=== PATIENT | male | born 2005 | race Caucasian/White ===

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

== ENCOUNTER 2025-02-27 12:13 | Outpatient (OUT) | payer MEDICAID, SELFPAY ==
--- OUTSIDE RECORDS SUMMARY | 2025-02-24 13:40 | XMS_ITS | Encounter Summary ---
Author Organization [facility] Address [address] [place] [address] Care Team Providers Care Senior Manufacturing Supervisor Name Role Phone Deyanira Beaulieu MD Primary Care Provider Reason for Visit * ReasonCommentsAcne Encounter Details DateTypeDepartmentCare Team (Latest Contact Info)Zuganegrpfz18/20/2025 1:40 PM EDTOffice Visit [facility] [address] [place] [address] Paulina Eisenberg APRN-CNP [address] [facility] [address] [place] [address] Acne vulgaris Social History Tobacco UseTypesPacks/DayYears UsedDateSmoking Tobacco: NeverAlcohol UseStandard Drinks/WeekCommentsNever0 (1 standard drink = 0.6 oz pure alcohol)caffeine: none Sex and Gender InformationValueDate RecordedSex Assigned at BirthNot on file Legal SiiKelu3407/20/2022 6:33 PM EDTGender IdentityNot on fileSexual Orientation Not on filedocumented as of this encounter Progress Notes * LIZA Burks - 02/24/2025 1:40 PM EDT Acne follow up: Location: face, back Duration: years Severity: mild Nature of acne: pimples, blackheads, cysts Modifying factors: none Associated Factors: oily skin Treatments used in the past: Doxycycline Current treatment: BPO 5% wash Status: stable, concerned with PIH Established patient All pertinent medical history, medications, and allergies were reviewed. General Exam: alert, oriented to person, place, and time, normal affect, well appearing Accompanied by friend A focused exam completed based on patient reported problems, see below: Skin Exam 1. ACNE VULGARIS Back, Head - Anterior (Face) Face clear today. PIH and scarring noted on the back. Continue BPO wash every day. Follow up in 1 year, sooner if flaring despite treatment. Existing Treatments - benzoyl peroxide (Benzoyl Peroxide Wash) 5 % external wash - APPLY TO THE AFFECTED AREA DAILY then rinse Next Visit: 1 year acne follow up documented in this encounter Plan of Treatment DateTypeDepartmentCare Team (Latest Contact Info)Krrvgdiukpv40/18/2025 2:40 PM ESTOffice Visit [facility] [address] [place] [address] Paulina Eisenberg APRN-CNP [address] [place] [address] 02/26/2026 1:00 PM EDTOffice Visit [facility] [address] [place] [address] Paulina Eisenberg APRN-CNP [address] [place] [address] documented as of this encounter Visit Diagnoses Diagnosis Acne vulgaris Other acne documented in this encounter Care Teams Team MemberRelationshipSpecialtyStart DateEnd Date Deyanira Beaulieu MD [address] [place] [address] PCP - GeneralFamily Qqajzhhc44/31/23documented as of this encounter
--- OUTSIDE RECORDS SUMMARY | 2025-02-27 12:16 | XMS_ITS | Encounter Summary ---
Author Organization [facility] Address [address] [place] [address] Care Team Providers Care Engagement Executive Name Role Phone Deyanira Beaulieu MD Primary Care Provider [phone] Encounter Details DateTypeDepartmentCare Team (Latest Contact Info)Zlhqudswckt87/20/2025Travel Social History Tobacco UseTypesPacks/DayYears UsedDateSmoking Tobacco: NeverAlcohol UseStandard Drinks/WeekCommentsNever0 (1 standard drink = 0.6 oz pure alcohol)caffeine: none Sex and Gender InformationValueDate RecordedSex Assigned at BirthNot on file Legal MkkPdah1907/20/2022 6:33 PM EDTGender IdentityNot on fileSexual Orientation Not on filedocumented as of this encounter Plan of Treatment DateTypeDepartmentCare Team (Latest Contact Info)Dnrkxcyinnq88/18/2025 2:40 PM ESTOffice Visit [facility] [address] [place] [phone] Paulina Eisenberg, WHEELCHAIR VAN DRIVER-SHEAR HELPER [address] [place] [address] 02/26/2026 1:00 PM EDTOffice Visit [facility] [address] [place] [address] Paulina Eisenberg, WHEELCHAIR VAN DRIVER-SHEAR HELPER [address] [place] [address] documented as of this encounter Visit Diagnoses Not on filedocumented in this encounter Care Teams Team MemberRelationshipSpecialtyStart DateEnd Date Deyanira Beaulieu MD [address] [place] [address] PCP - GeneralFamily Vkyjmscb09/31/23documented as of this encounter
--- OUTSIDE RECORDS SUMMARY | 2025-02-27 12:16 | XMS_ITS | Encounter Summary ---
Author Organization [facility] Address [address] [place] [address] Care Team Providers Care Religious Education Teacher Name Role Phone Deyanira Beaulieu MD Primary Care Provider [phone] Reason for Visit * ReasonOnset DateCommentsPrior Staxbdxcbdlcr42/09/2025 Encounter Details DateTypeDepartmentCare Team (Latest Contact Info)Rfsxrtkjity98/09/2025Telephone [facility] [address] [place] [phone] Rebel Ramirez LPN [address] [place] [address] Prior Authorization Social History Tobacco UseTypesPacks/DayYears UsedDateSmoking Tobacco: NeverAlcohol UseStandard Drinks/WeekCommentsNever0 (1 standard drink = 0.6 oz pure alcohol)caffeine: none Sex and Gender InformationValueDate RecordedSex Assigned at BirthNot on file Legal NwzKzbp6407/20/2022 6:33 PM EDTGender IdentityNot on fileSexual Orientation Not on filedocumented as of this encounter Miscellaneous Notes * Addendum Note - Rebel Ramirez LPN - 02/18/2025 1:25 PM EDTAddended by: REBEL RAIMREZ on: 02/18/2025 01:25 PM Modules accepted: Orders * Telephone Encounter - Rebel Ramirez LPN - 02/18/2025 1:25 PM EDT Resent as 35 mL. * Telephone Encounter - Rebel Ramirez LPN - 02/18/2025 8:39 AM EDT Drysol sent. Mom notified. Follow up for effectiveness in place for 03/25/2025. Requested mom call back and provide approval to cancel 02/24/2025 appt, as acne follow up can be combined with hyperhidrosis follow up on 03/25/2025. Forwarding back to provider since rx has been sent. * Telephone Encounter - LIZA Burks - 02/18/2025 8:22 AM EDT Okay to send in Drysol * Telephone Encounter - Rebel Ramirez LPN - 02/17/2025 10:34 AM EDT Sofdra gel denied. Coverage is provided when the member meets ALL the following requirements: Coverage is provided when the member has a history of at least 30 days of therapy with 3 preferred (medication covered by the Plan) medications in the same drug class (work in the same manner) that can be used to treat the members condition, or 2 preferred medications if there is no alternative in the same drug class, which include but are not limited to: Drysol OR Must provide documentation of medical necessity beyond convenience for why the patient cannot be changed to a preferred (medicationcovered by the plan) medication: for example, allergies (reaction to medication, such as itching ortrouble breathing), drug-drug interactions, contraindications, or intolerance (cannot tolerate the effects of a medication), OR There are no other preferred medications (medication covered by the Plan) available to treat member condition or requested dosage forms; and provider has provided appropriate supporting clinical evidence for members need of the non-preferred drug. Pt must try Drysol first x 30 days. Phone call to mom (on HIPAA) who approves Drysol to be sent to the pharmacy. Let mom know once Paulina approves sending this (tomorrow) Drysol will be sent and I will notify her. Added pt to scheduled 03/25/2025 for follow up on Drysol. Will need documentation pt tried and failed x 30 days. Mom aware to citrus picker Drysol as soon as possible from pharmacy. * Telephone Encounter - Rebel Ramirez LPN - 02/14/2025 9:11 AM EDT PA submitted for Sofdra gel at this time in CMM. Tried and failed OTC antiperspirants. * Telephone Encounter - LIZA Burks - 02/13/2025 1:58 PM EDT Okay to send Softra in * Telephone Encounter - Rebel Ramirez LPN - 02/13/2025 1:45 PM EDT Paulina, we recently got this pt's brother of Sofdra gel through [facility] and everything went smoothly after sending rx there today. Mom called and states New Mosqueda deals with odor as well and would like to know if New could have a prescription as well for Sofdra. Last visit was 09/2024. I can get a PA going if you would like to prescribe. documented in this encounter Plan of Treatment DateTypeDepartmentCare Team (Latest Contact Info)Xmtdngduiwr68/18/2025 2:40 PM ESTOffice Visit [facility] [place] [facility] [address] [place] [address] Paulina Eisenberg APRN-CNP [address] [place] [address] 02/26/2026 1:00 PM EDTOffice Visit [facility] [place] [facility] [address] [place] [phone] Paulina Eisenberg APRN-ERIKA [address] [place] [address] documented as of this encounter Visit Diagnoses Diagnosis Primary focal hyperhidrosis Primary focal hyperhidrosis, axilla documented in this encounter Care Teams Team MemberRelationshipSpecialtyStart DateEnd Date Deyanira Beaulieu MD [address] [place] [address] PCP - GeneralFamily Ultpqtgv79/31/23documented as of this encounter
--- OUTSIDE RECORDS SUMMARY | 2025-02-27 12:16 | XMS_ITS | Clinical Summary ---
Author Organization [facility] Address [address] [place] [address] Phone Care Team Providers Care Waiter/Waitress First Class Name Role Phone Doin Paul MD Primary Care Provider Unavailable Allergies Active AllergyReactionsCriticalityNoted DateCommentsCephalexinUnknown,Hives, Other06/09/2017 Medications MedicationSigDispense QuantityRefillsLast FilledStart DateEnd DateStatus albuterol (Ventolin HFA) 90 mcg/actuation inhaler Inhale 2 puffs every 6 hours if needed.12/08/2017Active cetirizine (ZyrTEC) 10 mg tablet Take 1 tablet (10 mg) by mouth.11/14/2019Active cholecalciferol (Vitamin D-3) 50 MCG (2000 UT) tablet Take 1 tablet (50 mcg) by mouth.10/23/2020ctive ergocalciferol (Vitamin D-2) 1.25 MG (69053 UT) capsule Take 1 capsule (1,250 mcg) by mouth 1 (one) time per week.06/13/2019Active lamoTRIgine (LaMICtal) 200 mg tablet Take 1 tablet (200 mg) by mouth.Active lamoTRIgine (LaMICtal) 25 mg tablet Take 1 tablet (25 mg) by mouth.05/05/2020Active multivitamin (Daily-Rosalia, with folic acid,) tablet Take 1 tablet by mouth.07/05/2019Active traZODone (Desyrel) 50 mg tablet Take 1 tablet (50 mg) by mouth.Active fexofenadine HCl (ASHLEY ORAL) Take 1 tablet by mouth.Active montelukast (Singulair) 10 mg tablet Take 1 tablet (10 mg) by mouth once daily.06/08/2022ctive cholecalciferol (Vitamin D-3) 50 mcg (2,000 unit) capsule Take 1 capsule (2,000 Units) by mouth once daily.06/08/2022ctive fexofenadine (Ashley) 180 mg tablet Take 1 tablet (180 mg) by mouth once daily.02/01/2023ctive paliperidone (Invega) 3 mg 24 hr tablet Take 1 tablet (3 mg) by mouth once daily in the morning. Do not crush, chew, or split.08/21/2023ctive benzoyl peroxide 5 % external wash APPLY TO THE AFFECTED AREA(S) DAILY then rinse02/28/2024ctive docusate sodium (Colace) 100 mg capsule Indications:Constipation, unspecified constipation typeTake 1 capsule (100 mg) by mouth once daily. 30 capsule ctive famotidine (Pepcid) 40 mg tablet Indications:Gastroesophageal reflux disease without esophagitisTake 1 tablet (40 mg) by mouth once daily. 30 tablet ctive Active Problems ProblemNoted DateDiagnosed UiqzZapovgiorigj69/16/2023sthma, mild intermittent 01/17/2023astroesophageal qwnrih0501/17/2023ttention deficit hyperactivity disorder, combined type02/02/2018Oppositional defiant eoxytizh12/28/2018 Immunizations ImmunizationAdministration DatesNext DueDTaP HepB IPV combined vaccine, pedatric (PEDIARIX)07/04/2006,04/26/2006,02/10/2006DTaP IPV combined vaccine (KINRIX, QUADRACEL)09/22/2010DTaP vaccine, pediatric (INFANRIX)03/28/2007Flu vaccine (IIV4), preservative free *Check age/dose*02/28/2022,02/22/2021,02/24/2020, 02/24/2019,02/07/2018Flu vaccine, trivalent, preservative free, age 6 months and greater (Fluarix/Fluzone/Flulaval)12/16/2016HPV 9-valent vaccine (GARDASIL 9) 07/25/2018,01/18/2018Hepatitis A vaccine, pediatric/adolescent (HAVRIX, VAQTA) 04/27/2011,09/22/2010Hepatitis B vaccine, 19 yrs and under (RECOMBIVAX, ENGERIX) 2005HiB PRP-T conjugate vaccine (HIBERIX, ACTHIB)12/20/2006,07/04/2006, 04/26/2006,02/10/2006Influenza Whole02/08/2013,03/05/2012,02/28/2011,03/26/2009, 02/23/2009Influenza, live, ehgjcrpkoo20/20/2014MMR and varicella combined vaccine, subcutaneous (PROQUAD)09/22/2010,12/20/2006Meningococcal ACWY vaccine (MENVEO)02/28/2022Meningococcal MCV4, Obwlvftauqq85/13/2018Novel gceswxhkm-W5X1-67, preservative-free08/11/2009Pneumococcal Conjugate PCV 7 03/28/2007,08/23/2006,07/04/2006,02/10/2006Td (adult), bxssrbxovja43/30/2018 Family History Medical HistoryRelationNameCommentsAllergiesBrotherAsthmaBrotherEczemaBrother MigrainesBrotherMilk intoleranceBrotherOtherBrotherUlcersBrotherCholelithiasis FatherNephrolithiasisFatherOtherFatherUlcersFatherCholelithiasisMaternal GrandfatherNephrolithiasisMaternal GrandfatherOtherMaternal Grandfather CholelithiasisMaternal GrandmotherNephrolithiasisMaternal GrandmotherOther Maternal GrandmotherAsthmaMotherCholelithiasisMotherColonic DiverticulitisMother Gastroesophageal RefluxMotherMigrainesMotherNephrolithiasisMotherUlcersMother CholelithiasisPaternal GrandfatherNephrolithiasisPaternal GrandfatherOther Paternal GrandfatherCholelithiasisPaternal GrandmotherNephrolithiasisPaternal GrandmotherOtherPaternal GrandmotherAllergiesSisterAsthmaSisterMigrainesSister OtherSisterRelationNameStatusCommentsBrotherFatherMaternal GrandfatherMaternal GrandmotherMotherPaternal GrandfatherPaternal GrandmotherSister Social History Tobacco UseTypesPacks/DayYears UsedDateSmoking Tobacco: Unknown Tobacco Cessation:Counseling Given: Not Answered Sex and Gender InformationValueDate RecordedSex Assigned at BirthNot on file Legal TsjQnov02/26/2022 6:37 PM ESTGender IdentityNot on fileSexual Orientation Not on file Last Filed Vital Signs Vital SignReadingTime TakenCommentsBlood Abalummm490/71008/08/2022 2:41 PM EDT Acmpy1030/03/2023 2:41 PM XNGLmyzkirjsba06.7 ??C (98 ??F)08/08/2022 2:41 PM EDT Respiratory Hcqh641108/08/2022 2:41 PM EDTOxygen Ccdhllpocb26%08/08/2022 2:41 PM EDTInhaled Oxygen Concentration--Axepaf55.1 kg (218 lb 7.6 oz)03/01/2024 10:15 AM WMDZvlpef006 cm (5' 4.17 )03/01/2024 10:15 AM EDTBody Mass Index37.3 03/01/2024 10:15 AM EDTBody Mass Index Ykyioljdrr87.85%03/01/2024 10:15 AM EDT Growth Chart: [facility] (Boys, 2-20 Years) Plan of Treatment Health MaintenanceDue DateLast DoneCommentsHIV Xsupwercg41/04/2006Lipid Panel 2005Hearing Screening (#1)2009DTaP/Tdap/Td Vaccines (6 - Tdap) , 09/22/2010, 09/22/2010, Additional history exists Meningococcal B Vaccine (1 of 2 - Standard)2021Hepatitis C Screening 12/10/2023Yearly Adult Cfpaplzx21, 04/13/2022, 12/28/2020, Additional history existsInfluenza Vaccine (#1)/, 02/28/2022, 02/22/2021, Additional history existsPneumococcal Vaccine: Pediatrics and At- Risk Adult Patients (1 of 2 - PCV), 08/23/2006, 07/04/2006, Additional history existsCOVID-19 Vaccine (3 - 2024- season)2025 02/22/2021, 01/15/2021Zoster Vaccines (1 of 2)6009/22/2010, 09/22/2010, 12/20/2006, Additional history existsHepatitis B KbkjiixqCgqlcmcos70/27/2007, 07/04/2006, 04/26/2006, Additional history existsHIB VaccinesCompleted 12/20/2006, 07/04/2006, 04/26/2006, Additional history existsIPV Vaccines Lkvzeotqo51/18/2011, 09/22/2010, 07/04/2006, Additional history existsMMR EdhqntebDenkpmjjp08/18/2011, 09/22/2010, 12/20/2006, Additional history exists Hepatitis A TknqurewZhuusxjyp22/21/2011, 09/22/2010HPV VaccinesCompleted 07/25/2018, 01/18/2018Irritable Bowel SvwiashqAlziikmzfler22/28/2020, 10/03/2019, 10/03/2019Meningococcal NggniciDifckuouf96/24/2022, 01/18/2018 Rotavirus VaccinesAged OutNo longer eligible based on patient's age to complete this topic Procedures Procedure NamePriorityDate/TimeAssociated DiagnosisCommentsCOLONOSCOPYRoutine 10/03/2019 7:03 AM EDT from Last 3 Months or Most Recently Relevant to Health Maintenance Results * Colonoscopy (10/03/2019 7:03 AM EDT)Anatomical RegionLateralityModality EndoscopySpecimen (Source)Anatomical Location / LateralityCollection Method / VolumeCollection TimeReceived Time10/03/2019 7:03 AM EDT Narrative 05/17/2022 12:57 PM EST Patient Name: New Mosqueda Procedure Date: 10/03/2019 7:03 AM Date of : 2005 Site: OR Ethnicity: Not or Race: Other Attending MD: Marylou Thomas MD, [id number] Procedure: ? Pediatric Colonoscopy Indications: ? Abdominal pain in the right lower quadrant Providers: ? Marylou B. Splawski, MD (Doctor) Pediatric ? Gastroenterology Referring MD: ? Medicines: ? General Anesthesia Complications: ? No immediate complications. Estimated blood loss: ? Minimal. Procedure: ? Pre-Anesthesia Assessment: ? - Lynn Protocol: ? - Pre-procedure Verification: Prior to the procedure, ? the patient's identity was verified by full name, date ? of and medical record number. The patient's ? identity was verified on all pertinent medical ? records, including History and Physical. Also prior to ? the procedure, a History and Physical was performed, ? and patient medications, allergies and sensitivities ? were reviewed. The patient's tolerance of previous ? anesthesia was reviewed. The risks and benefits of the ? procedure and the sedation options and risks were ? discussed with the patient. All questions were ? answered and informed consent was obtained. ? - Time-Out: Prior to the start of the procedure, the ? patient's identification, proposed procedure, accurate ? signed consent, correctly labeled images and records, ? and need for prophylactic antibiotics were verified by ? the physician, the nurse, the anesthesiologist, the ? staff editor and the treatment technician in the procedure room ? at 07:24 AM. ? - The patient is unable to give consent secondary to ? the patient being a minor. The alternatives, risks and ? benefits of the procedure were discussed at length ? with the patient's mother. The patient's proxy ? verbalized understanding of the risks as well as the ? alternatives and wished to proceed with the procedure. ? - ASA Grade Assessment: II - A patient with mild ? systemic disease. ? After I obtained informed consent, the scope was ? passed under direct vision. Throughout the procedure, ? the patient's blood pressure, pulse, and oxygen ? saturations were monitored continuously. The ? Colonoscope was introduced through the anus and ? advanced to 14 cm into the ileum. The colonoscopy was ? performed without difficulty. The patient tolerated ? the procedure well. The quality of the bowel ? preparation was good. Findings: ? The perianal and digital rectal examinations were normal. ? The colon (entire examined portion) appeared normal. 4 Biopsies were ? taken with a cold forceps for histology from the right, trasverse, left ? colon and rectum. ? The terminal ileum appeared normal. 6 Biopsies were taken with a cold ? forceps for histology. Impression: ?- The entire examined colon is normal. Biopsied. ? - The examined portion of the ileum was normal. ? Biopsied. Recommendation: ?- Await pathology results. ? - Discharge the patient to home with parent(s). ? - The findings and recommendations were discussed with ? the patient's family. Attending Participation: ? I personally performed the entire procedure. Marylou [...] Race: Other Attending MD: Marylou Thomas MD, [id number] Procedure: Pediatric Colonoscopy Indications: Abdominal pain in the right lower quadrant Providers: Marylou Thomas MD (Doctor) Pediatric Gastroenterology Referring MD: Medicines: General Anesthesia Complications: No immediate complications. Estimated blood loss: Minimal. Procedure: Pre-Anesthesia Assessment: - Lynn Protocol: - Pre-procedure Verification: Prior to theprocedure, [...] the physician, the nurse, the anesthesiologist, the staff editor and the treatment technician in the procedureroom at 07:24 AM. [...] In: 7:50:31 AM Scope Out: 8:09:31 AM Authorizing ProviderResult TypeResult StatusProvation ConversionENDOSCOPY PROCEDURE ORDERABLESEdited Result - Final from Last 3 Months or Most Recently Relevant to Health Maintenance Insurance Care Teams Team MemberRelationshipSpecialtyStart DateEnd Date Dion Paul MD [facility]10/08/18
--- OUTSIDE RECORDS SUMMARY | 2025-02-27 12:16 | XMS_ITS | Encounter Summary ---
Author Organization [facility] Address [address] [place] [address] Care Team Providers Care Creative Art Director Name Role Phone Deyanira Beaulieu MD Primary Care Provider [phone] Encounter Details DateTypeDepartmentCare Team (Latest Contact Info)Penxmwsxfra86/20/2025amboo flowsheet [facility] [address] [place] [address] Paulina Eisenberg, [employer] [address] [place] [address] Social History Tobacco UseTypesPacks/DayYears UsedDateSmoking Tobacco: NeverAlcohol UseStandard Drinks/WeekCommentsNever0 (1 standard drink = 0.6 oz pure alcohol)caffeine: none Sex and Gender InformationValueDate RecordedSex Assigned at BirthNot on file Legal OskYczi8607/20/2022 6:33 PM EDTGender IdentityNot on fileSexual Orientation Not on filedocumented as of this encounter Plan of Treatment DateTypeDepartmentCare Team (Latest Contact Info)Plszvwywklx54/18/2025 2:40 PM ESTOffice Visit [facility] [place] [facility] [address] [place] [address] Paulina Eisenberg, [employer] [address] [place] [address] 02/26/2026 1:00 PM EDTOffice Visit [facility] [place] [facility] [address] [place] [address] Paulina Eisenberg, [employer] [address] [place] [address] documented as of this encounter Visit Diagnoses Not on filedocumented in this encounter Care Teams Team MemberRelationshipSpecialtyStart DateEnd Date Deyanira Beaulieu MD [address] [place] [place] [address] PCP - GeneralFamily Cdlnelzd97/31/23documented as of this encounter
--- OUTSIDE RECORDS SUMMARY | 2025-02-27 12:16 | XMS_ITS | Encounter Summary ---
Author Organization [facility] Address [address] [place] [address] Care Team Providers Care Blender Machine Operator Name Role Phone Deyanira Beaulieu MD Primary Care Provider [phone] Reason for Visit * ReasonCommentsMed Change Request Encounter Details DateTypeDepartmentCare Team (Latest Contact Info)Xswjrwhrnuw31/14/2025Refill [facility] [address] [place] [address] Paulina Eisenberg, MAINTENANCE SHOP TECHNICIAN-[employer] CAPTAIN [address] [place] [address] Primary focal hyperhidrosis, axilla Social History Tobacco UseTypesPacks/DayYears UsedDateSmoking Tobacco: NeverAlcohol UseStandard Drinks/WeekCommentsNever0 (1 standard drink = 0.6 oz pure alcohol)caffeine: none Sex and Gender InformationValueDate RecordedSex Assigned at BirthNot on file Legal HqdEuzo8707/20/2022 6:33 PM EDTGender IdentityNot on fileSexual Orientation Not on filedocumented as of this encounter Plan of Treatment DateTypeDepartmentCare Team (Latest Contact Info)Ogtrzknolni61/18/2025 2:40 PM ESTOffice Visit [facility] [place] [facility] [address] [place] [address] Paulina Eisenberg, MAINTENANCE SHOP TECHNICIAN-[employer]ING BOAT CAPTAIN [address] [place] [address] 02/26/2026 1:00 PM EDTOffice Visit [facility] [address] [place] [address] Paulina Eisenberg, MAINTENANCE SHOP TECHNICIAN-[employer]ISHING BOAT CAPTAIN [address] [address] documented as of this encounter Visit Diagnoses Diagnosis Primary focal hyperhidrosis, axilla documented in this encounter Care Teams Team MemberRelationshipSpecialtyStart DateEnd Date Deyanira Beaulieu MD [address] [facility] [place] [address] PCP - GeneralFamily Qpaimzaj06/31/23documented as of this encounter
--- OUTSIDE RECORDS SUMMARY | 2025-02-27 12:16 | XMS_ITS | Clinical Summary ---
Author Organization [facility] Address [address], [address] [place] [address] Care Team Providers Care Family Therapist Name Role Phone Dion Paul MD Primary Care Provider Allergies Active AllergyReactionsCriticalityNoted FycxHnuggntcOlvbytzgmaXjwfw78/28/2018 Medications MedicationSigDispense QuantityRefillsLast FilledStart DateEnd DateStatus montelukast (SINGULAIR) 10 MG tablet Take 10 mg by mouth nightlyActive albuterol sulfate HFA 108 (90 Base) MCG/ACT inhaler Inhale 2 puffs into the lungs every 6 hours as needed for WheezingActive Social History Tobacco UseTypesPacks/DayYears UsedDateSmoking Tobacco: NeverSmokeless Tobacco: NeverSex and Gender InformationValueDate RecordedSex Assigned at BirthNot on fileLegal CqfJwkt20/23/2014 2:11 PM EDTGender IdentityNot on fileSexual OrientationNot on file Last Filed Vital Signs Vital SignReadingTime TakenCommentsBlood Qdiqqamc769/69005/27/2019 9:29 PM EST Xnaex74015 9:29 PM RJIYegchwgbssu50.6 ??C (97.8 ??F)05/27/2019 9:29 PM ESTRespiratory Lkxf492805/27/2019 9:29 PM ESTOxygen Ucwddumtzs17%05/27/2019 9:29 PM ESTInhaled Oxygen Concentration--Urqtdj05 kg (150 lb)10/02/2017 11:39 PM EDT Height--Body Mass Index-- Plan of Treatment Not on file Insurance * Guarantor: YASMIN BLANCHARDAccooanh TypeRelation to PatientDate of BirthPhone Billing AddressPersonal/FamilyMother [address] [place] [address] Care Teams Team MemberRelationshipSpecialtyStart DateEnd Date Dion Paul MD [address] [place] [address] PCP - GeneralFamily Medicine10/02/17
--- OUTSIDE RECORDS SUMMARY | 2025-02-27 12:16 | XMS_ITS | Clinical Summary ---
Author Organization [facility] tem Address [id number] [address] [place] [address] Care Team Providers Care Crimping Machine Operator Name Role Phone Arcenio Bernstein YRAELIS-HUMAN SERVICE WORKER Primary Care Provider [phone] Allergies Active AllergyReactionsCriticalityNoted ZhybCxdmdpzkGztrktwgnv36/02/2018 Medications * This document contains information received from the source organization and may not represent a complete record from that organization. MedicationSigDispense QuantityRefillsLast FilledStart DateEnd DateStatus traZODone (DESYREL) 50 mg tablet Take 1 tablet (50 mg total) by mouth nightly as needed.04/21/2019Active DAILY-EDITH tablet Take 1 tablet by mouth in the morning.12/13/2019Active montelukast (SINGULAIR) 10 mg tablet TAKE 1 TABLET BY MOUTH NIGHTLY 30 tablet Active Additional Information Patient not taking.Reported on 10/27/2022 famotidine (PEPCID) 20 mg tablet TAKE 1 TABLET BY MOUTH TWICE DAILY 60 tablet Active Additional Information Patient taking differently: 40 mg oral Daily, Reported on 10/27/2022 VITAMIN D2 1,250 mcg (50,000 unit) capsule Take 1 capsule (50,000 Units total) by mouth once a week. 4 capsule ctive cetirizine (ZyrTEC) 10 mg tablet TAKE 1 TABLET BY MOUTH DAILY 30 tablet ctive Additional Information Patient not taking.Reported on 10/27/2022 lamoTRIgine (LaMICtal) 100 mg tablet Take 200 mg by mouth as needed.Active albuterol (PROVENTIL HFA;VENTOLIN HFA) 90 mcg/actuation inhaler Indications:Acute bronchitis, unspecified organismINHALE 2 PUFFS BY MOUTH EVERY 6 HOURS NEEDED 18 g ctive docusate sodium (COLACE) 100 mg capsule Take 100 mg by mouth as needed.10/12/2021ctive fexofenadine (RADU) 180 mg tablet Take 1 tablet (180 mg total) by mouth in the morning.Active Active Problems ProblemNoted DateDiagnosed DateOppositional defiant fnjgnpyj45/28/2018Attention deficit hyperactivity disorder, combined type02/02/2018 Immunizations ImmunizationAdministration DatesNext RooYWfR3709/22/2010,03/28/2007,07/04/2006, 04/26/2006,02/10/2006HPV Qklwacutqyzg22/20/2019,01/18/2018Hepatitis A106/28/2010, 09/22/2010Hepatitis B007/04/2006,04/26/2006,02/10/2006,2005HiB12/20/2006, 07/04/2006,04/26/2006,02/10/2006IPV09/22/2010,07/04/2006,04/26/2006,02/10/2006 Influenza (IM) Preservative Free02/08/2013,03/05/2012,02/28/2011,03/26/2009, 02/23/2009Influenza LAIV (Nasal)02/24/2014Influenza, Lxkqvhncbdy65/03/2018, 12/16/2016,08/11/2009MMR09/22/2010,12/20/2006Meningococcal Erhdrbrvq96/13/2018 Pneumococcal Cuciegbrb96/21/2007,08/23/2006,07/04/2006,02/10/2006Td (adult), 2 Lf tetanus toxoid, preservative free, dtomgznd48/30/5523Dtby17/13/2018Varicella 09/22/2010,12/20/2006 Family History Medical HistoryRelationNameCommentsAsthmaBrotherDiabetesFatherHigh Cholesterol FatherDiabetesMaternal GrandfatherHeart attackMaternal GrandfatherDiabetes Maternal GrandmotherHigh CholesterolMaternal GrandmotherThyroid IssuesMaternal GrandmotherAsthmaMotherDiabetesMotherHigh CholesterolMotherDiabetesPaternal GrandfatherHeart attackPaternal GrandfathermultipleDiabetesPaternal Grandmother Thyroid IssuesPaternal GrandmotherAsthmaSisterArrhythmiaNeg HxClotting disorder Neg HxHeart defectNeg HxHypertensionNeg HxSeizuresNeg HxStrokeNeg HxSudden Neg HxRelationNameStatusCommentsBrotherFatherAliveMaternal GrandfatherDeceased Maternal GrandmotherMotherAlivePaternal GrandfatherPaternal GrandmotherSister Social History Tobacco UseTypesPacks/DayYears UsedDateSmoking Tobacco: Every Day Vaping/E-cigarettesSmokeless Tobacco: Never Tobacco Cessation:Ready to Q uit: Not Asked; Counseling Given: Not Answered Alcohol UseStandard Drinks/WeekCommentsNo0 (1 standard drink = 0.6 oz pure alcohol)PHQ-2AnswerDate RecordedTotal Pkbam561ChildcareAnswerDate VthdguksOivtaesjaGkmtsfx12/11/2019EmploymentAnswerDate RecordedEmploymentUnknown 10/16/2018Hunger ScreeningAnswerDate RecordedWithin the past 12 months we worried whether our food would run out before we got money to buy more.Never True10/27/2022Within the past 12 months the food we bought just didn't last and we didn't have money to get more.Never True3Purpose - LifeAnswerDate RecordedPurpose and direction in yzpvZngydvn46/19/2021ex and Gender Information ValueDate RecordedSex Assigned at BirthNot on fileLegal RqnMvgo5012/11/2014 12:04 PM EDTGender IdentityNot on fileSexual OrientationNot on file Last Filed Vital Signs Vital SignReadingTime TakenCommentsBlood Ualssyzw910/7106 3:25 PM EDT Lnvuh7904 3:25 PM PYGJxjdjahpwcu50.8 ??C (98.2 ??F)08/30/2021 11:17 AM EDTRespiratory Bftj867508/30/2021 11:17 AM EDTOxygen Dqttgsahmq73%10/27/2022 3:23 PM EDTInhaled Oxygen Concentration--Njjbib86.2 kg (218 lb 12.8 oz)10/27/2022 3:23 PM JAGZfjgam392 cm (5' 6.93 )10/27/2022 3:23 PM EDTBody Mass Index34.34 10/27/2022 3:23 PM EDTBody Mass Index Zottaoydme32.28%10/27/2022 3:23 PM EDT Growth Chart: CDC (Boys, 2-20 Years) Plan of Treatment Health MaintenanceDue DateLast DoneCommentsDepression Alrmtwcdj42/04/2018Tobacco Wdhdnzybj15/04/2018Adult BMI Oazwagzca05/3COVID-19 Vaccine ( season), 01/15/2021Influenza Lpihnoj8701/06/2025 02/28/2022, 02/22/2021, 02/24/2020, Additional history existsDTaP,Tdap and Td Vaccines (8 - Td or Tdap), 01/04/2018, 09/22/2010, Additional history exists Medical Devices Not on file Insurance Care Teams Team MemberRelationshipSpecialtyStart DateEnd Date Arcenio Bernstein APRN-ERIKA PCP - GeneralPrimary Care Provider10/27/22
--- OUTSIDE RECORDS SUMMARY | 2025-02-27 12:17 | XMS_ITS | Clinical Summary ---
Author Organization [facility] Healthcare Address [address] [place] [address] Care Team Providers Care Veterinary Technician Assistant Name Role Phone Deyanira Beaulieu MD Primary Care Provider [phone] Allergies Active AllergyReactionsCriticalityNoted DateCommentsCephalexinHives,Other, Kjlemkc0606/09/20173818StipvdlfndnUrjlkwy56/22/2024 Medications MedicationSigDispense QuantityRefillsLast FilledStart DateEnd DateStatus calcitriol (Rocaltrol) 0.25 MCG capsule Take 0.25 mcg by mouth DailyActive Multiple Vitamin (multivitamin) tablet Take 1 tablet by mouth DailyActive famotidine (Pepcid) 40 MG tablet Take by mouthActive docusate sodium (Colace) 100 MG capsule Take 100 mg by mouth in the morning and 100 mg before bedtime.Active Ventolin HFA 108 (90 Base) MCG/ACT inhaler Active cetirizine (ZyrTEC) 10 MG tablet 1 (one) time each day at the same timeActive ergocalciferol (Vitamin D2) 1.25 MG (60206 UT) capsule 07/06/2023ctive guanFACINE (Tenex) 1 MG tablet every 6 (six) hoursActive lamoTRIgine (LaMICtal) 200 MG tablet Take 1 tablet by mouth DailyActive montelukast (Singulair) 5 MG chewable tablet 1 (one) time each day at the same timeActive traZODone (Desyrel) 50 MG tablet Take 50 mg by mouth as needed at bedtimeActive benzoyl peroxide (Benzoyl Peroxide Wash) 5 % external wash Indications:Acne vulgarisAPPLY TO THE AFFECTED AREA DAILY then rinse 148 g 5Active aluminum chloride (Drysol) 20 % external solution Indications:Primary focal hyperhidrosis, axillaApply to clean, dry skin, once daily, at bedtime. Do not apply to broken or freshly shaven skin. supply 35 mL tive aluminum chloride (Drysol) 20 % external solution Indications:Primary focal hyperhidrosis, axillaApply to clean, dry skin, once daily, at bedtime. Do not apply to broken or freshly shaven skin. supply 35 mL tive FeroSul 325 (65 Fe) MG tablet 02/19/2025tive cyclobenzaprine (Flexeril) 5 MG tablet 02/19/2025tive ondansetron (Zofran) 4 MG tablet TAKE 1 TABLET BY MOUTH EVERY 4 TO 6 HOURS NEEDED FOR NAUSEA AND VOMITING 01/21/2025tive paliperidone (Invega) 3 MG 24 hr tablet 02/19/2025tive Allergy Relief 180 MG tablet 02/19/2025tive fexofenadine (Ashley) 60 MG tablet Take 180 mg by mouth in the morning.02/24/2025Discontinued doxycycline (Monodox) 100 MG capsule Indications:Acne vulgarisTAKE 1 CAPSULE BY MOUTH IN THE MORNING *take with at least EIGHT ounces OF water, do not lie down for 30 mins * 30 capsule Discontinued(Therapy completed) aluminum chloride (Drysol) 20 % external solution Indications:Primary focal hyperhidrosis, axillaApply to clean, dry skin, once daily, at bedtime. Do not apply to broken or freshly shaven skin. supply 60 mL Discontinued(Reorder) Active Problems No known active problems Encounters DateTypeDepartmentCare JxccQlehthczdoz72/20/2025 1:40 PM EDTOffice Visit [facility] [address] [place] [id number] Paulina Eisenberg APRN-CNP Acne pcuxfikd61/20/2025amboo flowsheet [facility] [address] [place] [phone] Paulina Eisenberg APRN-CNP 02/24/20256296Rgpbcp07/14/2025Refill [facility] [address] [place] [address] Paulina Eisenberg APRN-HEAD OF SALES AND MARKETING Primary focal hyperhidrosis, [id number] [facility] [address] [place] [address] Ashlee Ramirez LPN Prior Dgfqkjqlnyrry56/22/2025Refill [facility] [address] [place] [address] Paulina Eisenberg, YARELIS-ERIKA Acne vulgarisfrom Last 3 Months Family History Medical HistoryRelationNameCommentsMelanomaNeg HxRelationNameStatusComments FatherAliveMotherAlive Social History Tobacco UseTypesPacks/DayYears UsedDateSmoking Tobacco: Never Tobacco Cessation:Counseling Given: Not Answered Alcohol UseStandard Drinks/WeekCommentsNever0 (1 standard drink = 0.6 oz pure alcohol)caffeine: noneSex and Gender InformationValueDate RecordedSex Assigned at BirthNot on fileLegal KqkFwqw7007/20/2022 6:33 PM EDTGender IdentityNot on file Sexual OrientationNot on file Last Filed Vital Signs Vital SignReadingTime TakenCommentsBlood Chsizfqm516/72006/08/2022 12:00 PM EST Pulse--Temperature--Respiratory Rate--Oxygen Saturation--Inhaled Oxygen Concentration--Nmlvqz059 kg (230 lb)05/29/2023 10:12 AM KWYUwxicl879.7 cm (5' 8 )06/08/2022 12:00 PM ESTBody Mass Index-- Plan of Treatment DateTypeDepartmentCare Team (Latest Contact Info)Zjtlepjbqws55/18/2025 2:40 PM ESTOffice Visit [facility] [address] [place] [address] Paulina Eisenberg APRN-CNP [address] [place] [address] 02/26/2026 1:00 PM EDTOffice Visit [facility] [address] [place] [address] FeltPaulina fuller, METER/RELAY CRAFTSMAN-HEAD OF SALES AND MARKETING [address] [place] [address] Insurance Care Teams Team MemberRelationshipSpecialtyStart DateEnd Deyanira Beaulieu MD [address] [place] [address] PCP - GeneralFamily Asrnnttm40/31/23
--- OUTSIDE RECORDS SUMMARY | 2025-02-27 12:17 | XMS_ITS | CCD ---
Author Organization [facility] Care Team Providers Care Department Store Manager Name Role Phone PHYSICIAN, DEFAULT Unavailable Unavailable PHYSICIAN, DEFAULT Unavailable Unavailable LOBO PAUL Primary Care Unavailable Lobo Paul Unavailable Unavailable Unavailable Lobo Paul MD Primary Care Provider Fabricio, Ms. Kamila Serrano Referring Unavail able Fabricio, Ms. Kamila Serrano Attending Unavail able Defalvin, Dr. Lobo Linares Primary Care Unava ilable Defalvin, Dr. Lobo Linares Primary [facility] Unava ilable Fabricio, Ms. Kamila Serrano Referring Unavail able Fabricio, Ms. Kamila Serrano Attending Unavail able LISA COLLINSYL Attending Unavailable KARINA, MONE Consulting Un[facility] MONE COLLINS Admitting Unavailable SHAMMO, ESTEBAN Admitting Unavailable SHAMMO, ESTEBAN Attending Unavailable SHAMMO, ESTEBAN Consulting Unavailable SHAMMO, ESTEBAN Primary Care Unavailable [facility] Unava ilable CHELA, DR BLANCA Mckeon Attending Unavailable CHELA, DR BLANCA Mckeon Consulting Unavailable CHELA, DR BLANCA Mckeon Admitting Unavailable DefLobo esquivel MD Primary Care Provider Deyanira Beaulieu MD [facility] Care Provider [phone] Lobo Paul MD Primary [facility] Provider KAMILA UNDERWOOD Attending Unavailable LOBO PAUL [facility] Unavailab KAMILA Naik Attending Unavailable LOBO PAUL [facility] Unavailab alida Denny MD, Leslie Gilbert Attending Unavailable Brittnee PARIS [facility] Provider PAULINA EISENBERG Attending Unavailable PAULINA EISENBERG Attending Unavailable Allergies Allergy ClassificationReported Allergen(s)Allergy TypeDate of OnsetReaction(s) FacilityCephalosporins (antibiotic) (1 source)Cephalexin; Translations: [Keflex]Drug IvsplqnPI-Ygrfuglxfa-Xnmtcyeyu Work Phone: (16 sources)Cephalexin; Translations: [Keflex]Drug Gijmnej65-47-3761Mzeba, Unknown, OtherMer[facility] Health (1 source)CephalexinDrug Jdnxehh72-44-0019IuyMount St. [facility] (8 sources)OctacosanolDrug Flcsaii83-49-2857VvlbfbwHDGY Healthcare Medications Current Medications MedicationDrug Class(es)DatesSig (Normalized)Sig (Original)[id number] 200 actuat albuterol 0.09 mg/actuat metered dose inhaler (16 sources)beta2-Adrenergic AgonistStart: 18-29-1883fgko 2 puff(s) by inhalation every six hoursalbuterol (Ventolin HFA) 90 mcg/actuation inhaler Inhale 2 puffs every 6 hours if needed. 12/08/2017 ActiveStart: 18-57-8382alvs 2 puff(s) by mouth every six hours as neededVentolin HFA 108 (90 Base) MCG/ACT Inhalation Aerosol Solution INHALE 2 PUFFS BY MOUTH EVERY 6 HOURS NEEDED Quantity: 18 Refills: 0 Ordered: 17-Jan-2018 DO Start : 08-Dec-2017 Active Ventolin HFA 108 (90 Base) MCG/ACT inhaler Activetake 1 puff(s) by mouth every four hours as neededVentolin HFA 108 (90 Base) MCG/ACT inhaler INHALE 1 PUFF BY MOUTH EVERY 4 HOURS NEEDED Activealuminum chloride 200 mg/ml topical solution (4 sources)Start: 69-40-4585pxkdposr chloride (Drysol) 20 % external solution Indications: Primary focal hyperhidrosis, axilla Apply to clean, dry skin, once daily, at bedtime. Do not apply to broken or freshly shaven skin. 30 day supply 35 mL 11 02/18/2025 Activebenzoyl peroxide 50 mg/ml topical solution (11 sources)Start: 19-10-3060dihgbgn peroxide (Benzoyl Peroxide Wash) 5 % external wash Indications: Acne vulgaris APPLY TO THE AFFECTED AREA DAILY then rinse 148 g 12/30/2024 ActiveStart: 64-56-3598dkhcvwg peroxide (Benzoyl Peroxide Wash) 5 % external wash Indications: Acne vulgaris APPLY TO THE AFFECTED AREA DAILY then rinse 148 g 07/25/2024 ActiveStart: 48-44-0587dlkfjvc peroxide 5 % external wash APPLY TO THE AFFECTED AREA(S) DAILY then rinse 02/28/2024 Active Start: 01-30-2024 End: 12-36-9689zcdwxif peroxide (Benzoyl Peroxide Wash) 5 % external wash Indications: Acne vulgaris APPLY TO THE AFFECTED AREA(S) DAILY then rinse 142 g 5 02/13/2024 Activecalcitriol 0.58392 mg oral capsule (8 sources)Vitamin D3 Analogtake 1 capsule by mouth once dailycalcitriol (Rocaltrol) 0.25 MCG capsule Take 0.25 mcg by mouth Daily Activecetirizine hydrochloride 10 mg oral tablet (13 sources)Histamine-1 Receptor AntagonistStart: 67-72-3889ybbyrsirfr (ZyrTEC) 10 mg tablet Take 1 tablet (10 mg) by mouth. 11/14/2019 ActiveStart: 11-14-2019 Cetirizine HCl - 10 MG Oral Tablet Quantity: 30 Refills: 0 Ordered: 13-Apr-2020 DO Start : 14-Nov-2019 Activecholecalciferol 0.05 mg oral capsule (12 sources)Vitamin DStart: 68-79-5642ehks 1 capsule by mouth once daily cholecalciferol (Vitamin D-3) 50 mcg (2,000 unit) capsule Take 1 capsule (2,000 Units) by mouth once daily. 06/08/2022 ActiveStart: 32-17-0912levxmadkycfuubt (Vitamin D-3) 50 MCG (1999 UT) tablet Take 1 tablet (50 mcg) by mouth. 10/23/2020 ActiveStart: 26-80-1957Aqvoazd D3 50 MCG (2000 UT) Oral Tablet Quantity: 30 Refills: 0 Ordered: 19-Nov-2020 DO Start : 23-Oct-2020 Active cyclobenzaprine hydrochloride 5 mg oral tablet (1 source)Muscle RelaxantStart: 30-31-8468xmcjvxfnnaqckhd (Flexeril) 5 MG tablet 02/19/2025 Activedocusate sodium 100 mg oral capsule (17 sources)Start: 35-64-8601qanc 1 capsule by mouth once dailydocusate sodium (Colace) 100 mg capsule Indications: Constipation, unspecified constipation type Take 1 capsule (100 mg) by mouth once daily. 30 capsule 6 03/01/2024 Active Start: 08-09-2021 End: 39-56-6866bkhq 1 capsule by mouth once dailydocusate sodium (Colace) 100 mg capsule Indications: Constipation, unspecified constipation type Take 1 capsule (100 mg) by mouth once daily. 30 capsule 6 03/01/2024 03/01/2024 Discontinued ergocalciferol 1.25 mg oral capsule (15 sources)Provitamin D2 CompoundStart: 47-60-3017ffhluhmqxaghld (Vitamin D2) 1.25 MG (60711 UT) capsule 07/06/2023 ActiveStart: 97-13-7562gxda 1 capsule by mouth onceergocalciferol (Vitamin D2) 1.25 MG (95469 UT) capsule TAKE 1 CAPSULE BY MOUTH EVERY MONDAY for EIGHT weeks 07/06/2023 Activefamotidine 40 mg oral tablet (18 sources)Histamine-2 Receptor AntagonistStart: 33-37-0735sowc 1 tablet by mouth once dailyfamotidine (Pepcid) 40 mg tablet Indications: Gastroesophageal reflux disease without esophagitis Take 1 tablet (40 mg) by mouth once daily. 30 tablet 6 03/01/2024 ActiveStart: 12-14-2020 End: 20-24-5024inks 1 tablet by mouth once dailyfamotidine (Pepcid) 40 mg tablet Indications: Gastroesophageal reflux disease without esophagitis Take 1 tablet (40 mg) by mouth once daily. 30 tablet 6 03/01/2024 03/01/2024 Discontinued (Reorder)ferrous sulfate 325 mg oral tablet (1 source)Start: 11-14-3103BmguKlw 325 (65 Fe) MG tablet 02/19/2025 Active fexofenadine hydrochloride 180 mg oral tablet (14 sources)Histamine-1 Receptor AntagonistStart: 65-45-1277Tqftrpx Relief 180 MG tablet 02/19/2025 ActiveStart: 92-75-9238czkr 1 tablet by mouth once daily fexofenadine (Ashley) 180 mg tablet Take 1 tablet (180 mg) by mouth once daily. 02/01/2023 Active End: 44-62-0063jxpd 3 tablets by mouth in the morningfexofenadine (Ashley) 60 MG tablet Take 180 mg by mouth in the morning. 02/24/2025 Discontinued fexofenadine HCl (ASHLEY ORAL) Take 1 tablet by mouth. ActiveAllegra TABS Quantity: 0 Refills: 0 Ordered: 08-Aug-2022 DO ActiveguanFACINE 1 mg oral tablet (8 sources)Central alpha-2 Adrenergic AgonistguanFACINE (Tenex) 1 MG tablet every 6 (six) hours ActivelamoTRIgine 25 mg oral tablet (20 sources)Mood Stabilizer, Anti-epileptic AgentStart: 63-79-8983tleuGNLmzrm (LaMICtal) 25 mg tablet Take 1 tablet (25 mg) by mouth. 05/05/2020 ActiveStart: 67-06-1699nkkrDNDourx 25 MG Oral Tablet Quantity: 48 Refills: 0 Ordered: 05-May-2020 DO Start : 05-May-2020 Activetake 1 tablet by mouth once daily lamoTRIgine (LaMICtal) 200 MG tablet Take 1 tablet by mouth Daily ActiveLaMICtal 200 MG Oral Tablet Quantity: 0 Refills: 0 Ordered: 14-Dec-2020 DO Active montelukast 10 mg oral tablet (18 sources)Leukotriene Receptor AntagonistStart: 08-03-1647oexq 1 tablet by mouth once dailymontelukast (Singulair) 10 mg tablet Take 1 tablet (10 mg) by mouth once daily. 06/08/2022 ActiveStart: 88-62-8452oyap 1 tablet by mouth once dailyMontelukast Sodium 5 MG Oral Tablet Chewable CHEW & swallow ONE TABLET BY MOUTH DAILY Quantity:30 Refills: 0 Ordered: 19-Nov-2020 DO Start : 21-Oct-2020 ActiveStart: 52-99-9239oalb 1 tablet by mouth at bedtimeMontelukast Sodium 10 MG Oral Tablet TAKE 1 TABLET BY MOUTH AT BEDTIME Quantity: 30 Refills: 0 Ordered: 18-Dec-2017 DO Start : 15-Aug-2017 ActiveMultiple Vitamin (multivitamin) tablet (8 sources)take 1 tablet by mouth once dailyMultiple Vitamin (multivitamin) tablet Take 1 tablet by mouth Daily Activetake 1 tablet by mouth in the morning Multiple Vitamin (multivitamin) tablet Take 1 tablet by mouth in the morning. Activemultivitamin (Daily-Rosalia, with folic acid,) tablet (2 sources)Start: 27-63-7414fvposedhlblm (Daily-Rosalia, with folic acid,) tablet Take 1 tablet by mouth. 07/05/2019 Activeondansetron 4 mg oral tablet (1 source)Serotonin-3 Receptor AntagonistStart: 57-38-8675ckgk 1 tablet by mouth every four to six hours as needed for nausea and vomitingondansetron (Zofran) 4 MG tablet TAKE 1 TABLET BY MOUTH EVERY 4 TO 6 HOURS NEEDED FOR NAUSEA AND VOMITING 01/21/2025 Eqoegf07 hr paliperidone 3 mg extended release oral tablet (3 sources)Atypical AntipsychoticStart: 59-26-7886zsfrqtdopxvn (Invega) 3 MG 24 hr tablet 02/19/2025 ActiveStart: 67-74-7406cict 1 tablet by mouth once daily in the morningpaliperidone (Invega) 3 mg 24 hr tablet Take 1 tablet (3 mg) by mouth once daily in the morning. Donot crush, chew, or split. 08/21/2023 Active traZODone hydrochloride 50 mg oral tablet (15 sources)Serotonin Reuptake InhibitortraZODone (Desyrel) 50 MG tablet Take 50 mg by mouth as needed at bedtime ActiveDesyrel 50 MG TABS Quantity: 0 Refills: 0 Ordered: 14-Dec-2020 DO ActiveDesyrel 50 MG TABS Quantity: 0 Refills: 0 Ordered: 14-Dec-2020 DO Active Completed/Discontinued Medications MedicationDrug Class(es)DatesSig (Normalized)Sig (Original)amoxicillin 500 mg / clavulanate 125 mg oral tablet (2 sources)Penicillin-class AntibacterialStart: 33-30-6874tsdb 1 tablet by mouth twice dailyAmoxicillin-Pot Clavulanate 500-125 MG Oral Tablet TAKE 1 TABLET BY MOUTH TWICE DAILY Quantity: 20 Refills: 0 Ordered: 03-Aug-2021 DO Start : 03-Aug-2021 Activeazithromycin 500 mg oral tablet (1 source)Macrolide AntimicrobialStart: 27-59-3867erxm 1 tablet by mouth once dailyAzithromycin 500 MG Oral Tablet TAKE 1 TABLET BY MOUTH DAILY Quantity: 7 Refills: 0 Ordered: 22-Dec-2021 DO Start : 22-Dec-2021 CompleteDaily-Rosalia Oral Tablet (4 sources)Start: 67-02-2860Ccpbd-Rosalia Oral Tablet Quantity: 30 Refills: 0 Ordered: 13-Apr-2020 DO Start : 05-Jul-2019 Activedoxycycline monohydrate 100 mg oral capsule (11 sources)Tetracycline-class DrugStart: 12-30-2024 End: 46-25-2433mwweivvumwc (Monodox) 100 MG capsule Indications: Acne vulgaris TAKE 1 CAPSULE BY MOUTH IN THE MORNING *take with at least EIGHT ounces OF water, do not lie down for 30 mins * 30 capsule 12/30/2024 02/24/2025 Discontinued (Therapy completed)Start: 77-24-0888yspbxareoto (Monodox) 100 MG capsule Indications: Acne vulgaris TAKE 1 CAPSULE BY MOUTH IN THE MORNING *take with at least EIGHT ounces OF water, do not lie down for 30 mins * 30 capsule 08/27/2024 ActiveStart: 07-31-2023 End: 36-51-1590huwwpvnrqnn (Monodox) 100 MG capsule Indications: Acne vulgaris Take 1 capsule (100 mg) by mouth inthe morning. Take with at least 8 ounces (large glass) of water, do not lie down for 30 minutes after. 30 capsule 5 02/13/2024 ActiveStart: 88-71-6274yvym 1 capsule by mouth once dailyDoxycycline Hyclate 100 MG Oral Capsule TAKE 1 CAPSULE BY MOUTH DAILY FOR 7 DAYS Quantity: 7 Refills: 0 Ordered: 22-Dec-2021 DO Start : 22-Dec-2021 Completeerythromycin 0.005 mg/mg ophthalmic ointment (1 source)Macrolide, Macrolide AntimicrobialStart: 70-03-4664Xpcoudgzsdep 5 MG/GM Ophthalmic Ointment PLACE a ONE-HALF inch ribbon OF ointment into the right lower eyelid TWICE DAILY Quantity: 4 Refills: 0 Ordered: 30-Aug-2021 DO Start : 30-Aug-2021 Complete1 ml ketorolac tromethamine 15 mg/ml cartridge (1 source)Nonsteroidal Anti-inflammatory Drug, Cyclooxygenase InhibitorStart: 05-27-2019 End: 09-41-9178napezddct (TORADOL) injection 15 mglithium carbonate 450 mg extended release oral tablet (3 sources)Start: 14-20-6894Gkclqlh Carbonate ER 450 MG Oral Tablet Extended Release Quantity: 60 Refills: 0 Ordered: 12-Mar-2020 DO Start : 17-Dec-2019 Activelurasidone hydrochloride 40 mg oral tablet (3 sources)Atypical AntipsychoticStart: 31-51-7741Eobaoy 40 MG Oral Tablet Quantity: 30 Refills: 0 Ordered: 13-Apr-2020 DO Start : 18-Mar-2020 Wmkaze49 hr QUEtiapine 300 mg extended release oral tablet (10 sources)Atypical AntipsychoticStart: 29-63-6622zeub 1 tablet by mouth every twenty-four hoursQUEtiapine Fumarate ER 300 MG Oral Tablet Extended Release 24 Hour Quantity: 30 Refills: 0 Ordered:19-Nov-2020 DO Start : 23-Sep-2020 Active Start: 40-28-2499iked 1 tablet by mouth every twenty-four hoursQUEtiapine Fumarate ER 150 MG Oral Tablet Extended Release 24 Hour Quantity: 30 Refills: 0 Ordered:24-Aug-2020 DO Start : 24-Jul-2020 Activetake 1 tablet by mouth every twenty-four hoursSEROquel XR 400 MG Oral Tablet Extended Release 24 Hour Quantity: 0 Refills: 0 Ordered: 14-Dec-2020 DO Active Problems Active Problems Problem ClassificationProblemDateDocumented DateEpisodic/ChronicAllergic reactions (5 sources)Environmental allergy; Translations: [Other allergy, other than to medicinal agents]EpisodicAsthma (7 sources)Mild intermittent asthma; Translations: [Asthma, unspecified type, unspecified]Onset: 858740-51-4141JbxqiikMmueehsuo-kaeksly, conduct, and disruptive behavior disorders (2 sources)Attention deficit hyperactivity disorder, combined type; Translations: [Attention-deficit hyperactivity disorder, combined type]Onset: 016378-84-2801XnbeebqSvznsiqmf-ksjvqzi, conduct, and disruptive behavior disorders (2 sources)Oppositional defiant disorder; Translations: [Oppositional defiant disorder]Onset: 274765-33-7516VmlfnjqDgxnrgteqz disorders (11 sources)Gastroesophageal reflux disease; Translations: [Esophageal reflux] Onset: 072300-83-5426XdrrejiIopixkxmykq deficiencies (4 sources)Vitamin D deficiency, unspecified; Translations: [VITAMIN D DEFICIENCY UNSPECIFIED]Onset: 20-85-3330LtbhesmPpwrk gastrointestinal disorders (8 sources)Constipation; Translations: [Constipation, unspecified]Onset: 854086-40-2097PifimaccAbhop skin disorders (5 sources)Acne vulgaris; Translations: [Acne vulgaris]80-90-0144Tyebphin Residual codes; unclassified (5 sources)H/O: respiratory disease; Translations: [Personal history of other diseases of respiratory system]EpisodicUnclassified (1 source)Strain of intercostal muscle Past or Other Problems Problem ClassificationProblemDateDocumented DateEpisodic/ChronicAbdominal pain (5 sources)Tenderness of right lower quadrant of abdomen; Translations: [Abdominal tenderness, right lower quadrant] Resolved: 13-97-9157XhgjnatfRccjvpbkqhdlq and screening for infectious disease (4 sources)Contact with and (suspected) exposure to infections with a predominantly sexual mode of transmission; Translations: [CONTCT W EXPOS INFECT SEXUAL TRNSMS]Onset: 56-38-4689HlzycwecTooej ear and sense organ disorders (3 sources)Otalgia, right ear; Translations: [OTALGIA RIGHT EAR]Onset: 98-82-7070FwownlidHghbw gastrointestinal disorders (2 sources)Constipation, unspecified; Translations: [Constipation, unspecified] Onset: 40-50-6676OshjpnowWtsxt nutritional; endocrine; and metabolic disorders (5 sources)History of nutritional deficiency; Translations: [Personal history of nutritional deficiency] Resolved: 40-72-2516RawvzosuNtnube media and related conditions (1 source)Otitis media, unspecified, right ear; Translations: [OTITIS MEDIA UNSPECIFIED RIGHT EAR]Onset: 31-45-4834PmgudzggZwvjrker codes; unclassified (5 sources)History of heartburn; Translations: [Personal history of other diseases of digestive system] Resolved: 88-02-1161FrpemczbSfjnywjn codes; unclassified (5 sources)History of clinical finding in subject; Translations: [Personal history of other specified diseases] Resolved: 79-32-9873IigvqzwaJhvqzwny codes; unclassified (5 sources)H/O: gastrointestinal disease; Translations: [Personal history of other diseases of digestive system] Resolved: 49-50-1696ZzquziuePysfslzyfjfk (5 sources)No prior hospitalisations; Translations: [No prior hospitalisations] Results Test NameValueInterpretationReference RangeFacilityPTH INTACTon 60-58-3431TPM, Wytbvh96 pg/nUOhhgyz50-47Axf [facility] SystemComment on above:Performed By: #### PTHINT #### [facility] [address] [place] [address] Dr. Christianne FoyHEMOGRAM AND PLATELon 51-48-6231Wywpooawai (Bld) [Volume fraction]45.5 %Qotmll59.0-54.0The [facility] SystemComment on above:Performed By: #### HH #### [facility] [address] [place] [address] Dr. Christianne FoyHemoglobin (Bld) [Mass/Vol]14.8 g/wUSqmlqk22.0-18.0The [facility] SystemComment on above:Performed By: #### HH #### [facility] [address] [place] [address] Dr. Christianne Hayes (RBC) [Entitic mass]28.5 yuHwlfjm65.9-34.0The [facility] SystemComment on above:Performed By: #### HH #### [facility] [address] [place] [address] Dr. [facility]AM[facility] (RBC) [Mass/Vol]32.5 g/gOFdgxde12.9-35.2The [facility] SystemComment on above:Performed By: #### HH #### [facility] [address] [place] [address] Dr. Christianne Hayes (RBC) [Entitic vol]87.7 cSVlxxgf46.3-90.1The [facility] SystemComment on above:Performed By: #### HH #### [facility] [address] [place] [address] Dr. Christianne FoyPLT203 103/hcDwjfrl523-460Sef [facility] SystemComment on above: Performed By: #### HH #### [facility] [address] [place] [address] Dr. Christianne FoyRBC5.19 106/ulNormal3.30-5.40The [facility] SystemComment on above:Performed By: #### HH #### [facility] [address] [place] [address] Dr. Christianne FoyWBC7.2 103/ulNormal4.0-11.0The [facility] SystemComment on above: Performed By: #### HH #### [facility] [address] [place] [address] Dr. Christianne FoyPROF 14(COMP METB)on 07-75-4996Ievlgpw [Mass/Vol]4.1 g/dLNormal 3.4-5.0The [facility] SystemComment on above:Performed By: #### CMP #### [facility] [address] [place] [address] Dr. Christianne FoyAlbumin/Globulin [Mass ratio]1.1 {ratio}NormalThe [facility] SystemComment on above:Performed By: #### CMP #### [facility] [address] [place] [address] Dr. Christianne SaenzP [Catalytic activity/Vol]90 U/VDbzpjh25-732Dlo [facility] SystemComment on above:Performed By: #### CMP #### [facility] [address] [place] [address] Dr. Christianne Mathias [Catalytic activity/Vol]33 U/CTbijof71-06Fou [facility] SystemComment on above:Performed By: #### CMP #### [facility] [address] [place] [address] Dr. Christianne Sousa gap [Moles/Vol]12.8 mmol/LNormalThe [facility] Comment on above:Performed By: #### CMP #### [facility] [address] [place] [address] Dr. Christianne FoyAST [Catalytic activity/Vol]14 U/LCritically sfk74-53Hxb [facility] SystemComment on above:Performed By: #### CMP #### [facility] [address] [place] [address] Dr. Christianne FoyBilirubin [Mass/Vol]0.5 mg/dLNormal0.2-1.0The [facility] Comment on above:Performed By: #### CMP #### [facility] [address] [address] [address] Christianne FoyCalcium [Mass/Vol]9.2 mg/dLNormal8.5-10.1[facility] Comment on above:Performed By: #### CMP #### [facility] [address] [address] [address] Christianne FoyChloride [Moles/Vol]104 mmol/YGqbvgm16-359Mph [facility] Comment on above:Performed By: #### CMP #### [facility] [address] [address] [address] Christianne FoyCO2 [Moles/Vol]28.4 mmol/BWfyhkl67.0-32.0The [facility] Comment on above:Performed By: #### CMP #### [facility] [address] [address] [address] Christianne FoyCreatinine [Mass/Vol]0.87 mg/dLNormal0.70-1.30[facility] HospitalComment on above:Performed By: #### CMP #### [facility] [address] [address] [address] Christianne FoyGlobulin (S) [Mass/Vol]3.6 g/dLNormalThe [facility] SystemComment on above:Performed By: #### CMP #### [facility] [address] [address] [address] Christianne FoyGlucose [Mass/Vol]93 mg/nARmvtmn33-776Awq [facility] Comment on above:Performed By: #### CMP #### [facility] [address] [address] [address] Christianne FoyPotassium [Moles/Vol]4.2 mmol/LNormal3.5-5.1The [facility] Comment on above:Performed By: #### CMP #### [facility] [address] [address] [address] Christianne FoyProtein [Mass/Vol]7.7 g/dLNormal6.4-8.2The [facility] Comment on above:Performed By: #### CMP #### [facility] [address] [address] [address] Christianne FoySodium [Moles/Vol]141 mmol/VHoxubb513-919KjbMount St. [facility] Hospital Comment on above:Performed By: #### CMP #### [facility] [address] [address] [address] Christianne FoyUrea nitrogen [Mass/Vol]16.0 mg/dLNormal6.4-19.3TRegency Hospital ToledoComment on above:Performed By: #### CMP #### [facility] [address] [place] [address] Dr. Christianne FoyUrea nitrogen/Creatinine [Mass ratio]18.4 mg/mgNoHocking Valley Community HospitalComment on above:Performed By: #### CMP #### [facility] [address] [place] [address] Dr. Christianne FoyVITAMIN D 25 OHon 99-97-6085GOK D 25-OH10.6 ng/mLNormalMount St. Mary HospitalComment on above:Performed By: #### VITAD #### [facility] [address] [place] [address] Dr. Christianne Wong RANGESSEE BELOWDiley Ridge Medical CenterComment on above: Result Comment: <20 ng/mL Vit D deficient 20 - <30 ng/mL Vit D insufficient 30 - 100 ng/mL Vit D sufficient >100 ng/mL Potential ToxicityPerformed By: #### VITAD #### [facility] [address] [place] [address] Dr. Christianne Mike Rateon 39-86-7421Zqrix RateNormal AD-Xstwvokwwwvobjlt-Lgjqmisj H DO Work Phone: Heart IxtwWifplNL-Vhiwrblvzfitmkjr-Pimuyjhg H DO Work Phone: Peds Gastroenterology - Establishedon 87-64-2860[facility] - EstablishedDiagnoses/Problems Assessed Gastroesophageal reflux (530.81) (K21.9) Constipation (564.00) [...] SolutionINHALE 2 PUFFS BY MOUTH EVERY 6 HOURSAS NEEDED Vitamin D (Ergocalciferol) 1.25 MG (16257 UT) Oral CapsuleTAKE 1 CAPSULE WEEKLY. Vitamin D3 50 MCG (2000 UT) Oral Capsule Vitamin D3 50 M (more content not included)...NormalUH TouchworksHeart Rateon 24-37-1149Kgjfb NryhDiqotcIF-Ndgyirpvee-Pzpcsksa H DO Work Phone: Tobacco use status CPHSb) YeNT-Xsvapkymvr-Vwiwlypq H DO Work Phone: Heart EpytWgvcguVI-Uvoiibalsy-Lbnjdibp H DO Work Phone: Heart PqmiAxmviPZ-Ozfdplytcc-Honnwbef H DO Work Phone: Peds Gastroenterology - Establishedon 07-03-8261Hocw Gastroenterology - EstablishedDiagnoses/Problems Assessed Gastroesophageal reflux (530.81) (K21.9) Constipation (564.00) (K59.00) Orders Constipation Renew: Docusate Sodium 100 MG Oral Capsule; TAKE 1 CAPSULE BY MOUTH DAILY Rx By: Kamila Underwood; Dispense: 30 Days ; #:30 Capsule; Refill: 6;For: Constipation; WENCESLAO = N; Sent To: [facility]; Last Updated By: System, [employer]; 02/07/2022 1:39:01 PM Gastroesophageal reflux Renew: Famotidine 40 MG Oral Tablet; TAKE 1 TABLET DAILY DIRECTED Rx By: Kamila Underwood; Dispense: 30 Days ; #:30 Tablet; Refill: 6;For: Gastroesophageal reflux; WENCESLAO = N; Sent To: [facility]; Last Updated By: SystemSyntricityer; 02/07/2022 1:38:59 PM Patient Discussion/Summary 1. Continue [...] Secondhand smoke exposure (V15.89) (more content not included)...NormalUH TouchworksCHLAMYDIA/GONOCOCCUS MAX (SWAB/URINE/PAPon 86-19-6510Eahzzjjyg trachomatis, NAAPositiveAbnormalNegativeMount St. Mary HospitalComment on above: Result Comment: .Performed By: #### CT/NGNA #### [facility] [address] [address] [address] Christianne FoyNeisseria gonorrhoeae, NAANegativeNormalNegativeThe [facility] SystemComment on above:Performed By: #### CT/NGNA #### [facility] [address] [address] [address] Christianne Foy Video Visit - Telehealthon 47-43-0878GD Video Visit - TelehealthChi Complaint video visit. went off meds himself over 2 weeks GO. mom is now is watching him take it. Subjective Interval History/HPI This visit was conducted via two-way, real-time interactive video communications from my office using [employer] due to the restrictions of the COVID-19 pandemic. No physical exam was conducted other than those areas of the body visible to telecommunications with the patient located at [address] [place] [phone], with mother in attendance. If it is determined that the patient should be evaluated in the clinic, the patient will be directed to the appropriate clinic or venue. The patient or their guardian verbally consented to this visit. Video time was 10 minutes with the patient face to face greater than 50% in addition to counselingand coordination of care. Patient did not engage [...] and then we had to involve his operational intelligence officer. Patient continues to show poor impulse [...] and judgment and has been more impulsive. Diagnosis/Assessment/Treatment Plan Informed Consent: Standard Inform Consent (IC), [...] 2. 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 We encourage mother to call local CPS as well as local agencies to get him a higher level of care including possible placement in a more therapeutic environment. 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 PTSD (post-traumatic stress disorder): Mother and Brother.[facility]ermont HospitalComment on above:Result Comment: Electronically Signed By: ALEJANDRA PARIS, Upender\.br\Date and Time Signed: 04/05/20 15:29 EST Vital Signs Date TimeVital SignValuePerforming EkpcuylebWqrscadl32-14-3989 10:15-0400Body ohuhkv451 cmSharjocelyn Fabricio RIM FIRE CHARGER OPERATOR-NIGHT COORDINATOR Work Phone: 1([phone])679-[address] [place], [place] 1453610-25-2024 10:15-0400 Body mass index (BMI) [Percentile] Per age and sex98.85 %Kamila Underwood RIM FIRE CHARGER OPERATOR-NIGHT COORDINATOR Work Phone: [phone]10-25-2024 10:15-0400 Body mass index (BMI) [Ratio]37.3 kg/c9Jpzmvg Fabricio RIM FIRE CHARGER OPERATOR-NIGHT COORDINATOR Work Phone: [phone]10-25-2024 10:15-0400 Body cqitfr93.1 kgSharon Fabricio RIM FIRE CHARGER OPERATOR-NIGHT COORDINATOR Work Phone: [phone] [place], [place] 0441904-15-2024 12:56-0400 Body gdhifb989.5 cmSharon Fabricio RIM FIRE CHARGER OPERATOR-NIGHT COORDINATOR Work Phone: [phone]04-15-2024 12:56-0400 Body mass index (BMI) [Percentile] Per age and sex98.24 %Kamila nUderwood RIM FIRE CHARGER OPERATOR-NIGHT COORDINATOR Work Phone: [phone]04-15-2024 12:56-0400 Body mass index (BMI) [Ratio]34.98 kg/c6Xzwkzu Fabricio RIM FIRE CHARGER OPERATOR-NIGHT COORDINATOR Work Phone: 1(542)[address]04-15-2024 12:56-0400 Body wfebnb052.7 kgSharon Fabricio RIM FIRE CHARGER OPERATOR-NIGHT COORDINATOR Work Phone: 1(092)7-[address] [place], [place] 1453604-03-2023 14:41-0400 Body iwcuvd536.5 cmDavid T [place] Work Phone: 1([phone]-Ozgoprokuwkqvfyg-[place] H DO Work Phone: 1(526) 328-305604-03-2023 14:41-0400Body mass index (BMI) [Ratio] 34.92 kg/r6Ruayd T [place] Work Phone: [phone])[phone]-Qwgldeigfvcspyfz-[place] H DO Work Phone: 1(225) 369-491804-03-2023 14:41-0400Body surface area Derived from formula2.16 i5Zqvzl T Defrance Work Phone: 1([phone]-Omruvrblclyomeco-[place] H DO Work Phone: 1(604) 426-652304-03-2023 14:41-0400Body xmcihcltnyn79 [degF]Lobo Escamilla Defrance Work Phone: 1([phone])[phone]-Yxkvagblgmtulzoz-[place] H DO Work Phone: 1(533) [phone] 14:41-0400Body igrnth840.9 kgDavid T Defrance Work Phone: 1(703)[phone]-Cpbvvbhhvscywggl-[place] H DO Work Phone: 1(823) 172-266704-03-2023 14:41-0400Diastolic blood yhdeczxk16 mm[Hg] Lobo Escamilla Defrance Work Phone: 1([phone]-Ghegkjnvwlsqomlv-[place] H DO Work Phone: 1(409) 473-172904-03-2023 14:41-0400Heart rate72 /minDavid T Defrance Work Phone: 1(707)[phone]-Wsztbwjyxoovwjba-[place] H DO Work Phone: 1(394) [phone] 14:41-0400Respiratory rate18 /minDavid T Defrance Work Phone: 1(748)[phone]-Dyxpexoxuthreakg-[place] H DO Work Phone: 1(981) [phone] 14:41-0161MjA8% (BldA) [Mass fraction]97 % Lobo Escamilla Defrance Work Phone: 1([phone])[phone]-Scivqpgqmayfjjoh-[place] H DO Work Phone: 1(501) 406-790304-03-2023 14:41-0400Systolic blood rukhoomw195 mm[Hg] Lobo Escamilla Defrance Work Phone: IX-Rotnhoisdcprhzsy-[place] H DO Work Phone: 1(570) 835-138204-03-2023 14:41-701892 1David T Defrance Work Phone: 1(172)[phone]-Bowotemvfkfefitl-[place] H DO Work Phone: Comment on above:5-26_CUcpq57-28-2023 14:41-202039 1 Lobo Escamilla Defrance Work Phone: 1(071)[phone]-Piouqplrthaaknns-[place] H DO Work Phone: Comment on above:6-46_KEpjsVBYCmjb32-60-2022 13:14-0400Body cmDavid T Defrance Work Phone: [phone]-Etnpskmlkj-[place] H DO Work Phone: 1(238) 910-939810-03-2022 13:14-0400Body mass index (BMI) [Ratio] 37.11 kg/b3Cfztu T Defrance Work Phone: 1(539) [phone]-Inkaapaxij-[place] H DO Work Phone: 1(124) 828-922410-03-2022 13:14-0400Body surface area Derived from formula2.19 i9Wutdg T Defrance Work Phone: 1(126) [phone]-Fwnpsphfif-[place] H DO Work Phone: 1(819) 470-594010-03-2022 13:14-0400Body rhruroeictb41.4 [degF]Lobo Escamilla Defrance Work Phone: 1([phone]-Lrnsivxyas-[place] H DO Work Phone: 1(903) 617-478710-03-2022 13:14-0400Body hlborq978.5 kgDavid T Defrance Work Phone: 1(173)[phone]-Oxfokzybcp-[place] H DO Work Phone: 1(374) 547-965410-03-2022 13:14-0400Diastolic blood metfsbxi87 mm[Hg] Lobo Escamilla Defrance Work Phone: 1(042)[phone]-Qmwbnwivcg-[place] H DO Work Phone: 1(154) 595-139310-03-2022 13:14-0400Heart rate87 /minDavid T Defrance Work Phone: 1(933) [phone]-Jlvejhtwkv-[place] H DO Work Phone: 1(153) 868-772510-03-2022 13:14-0400Respiratory rate18 /minDavid T Defrance Work Phone: 1(198) [phone]-Uxaamgxvma-[place] H DO Work Phone: 1(834) 444-521210-03-2022 13:14-5834IwN1% (BldA) [Mass fraction]98 % Lobo Francine Defrance Work Phone: mg059-1415WY-Fpquigjqhg-[place] H DO Work Phone: 1(961) 220-392110-03-2022 13:14-0400Systolic blood oeclzrmc064 mm[Hg] Lobo Francine Defrance Work Phone: 1(411) [phone]-Xhjeryaond-[place] H DO Work Phone: 1(770) 800-864810-03-2022 13:14-212312 1David T Defrance Work Phone: 1(827) [phone]-Fqcmconfiy-[place] H DO Work Phone: Comment on above:6-19_BTjkn42-99-2022 13:14-996390 1 Lobo Escamilla Defrance Work Phone: 1(538) [phone]-Cfhzetfdoi-[place] H DO Work Phone: Comment on above:9-91_RVyvnOOXXggl04-17-2022 15:00-0400Body cmDavid T Defrance Work Phone: 1(865) [phone]-Wtemgranusztmdxa-[place] H DO Work Phone: 1(748) 709-925204-04-2022 15:00-0400Body mass index (BMI) [Ratio] 36.61 kg/s5Iarcw T Defrance Work Phone: 1([phone])[phone]-Bpqjojqzjpimwsfp-[place] H DO Work Phone: 1(809) 616-253204-04-2022 15:00-0400Body surface area Derived from formula2.16 u1Rxbrr T Defrance Work Phone: 1(150) [phone]-Nasctfzdcnekdfiy-[place] H DO Work Phone: 1(331) 583-545904-04-2022 15:00-0400Body fniynuukret49.6 [degF]Lobo Escamilla Defrance Work Phone: 1(783)[phone]-Xkqudkvxovlywjhk-[place] H DO Work Phone: 1(411) 726-634804-04-2022 15:00-0400Body .8 kgDavid T Defrance Work Phone: 1(970) [phone]-Vibioeceegeufgsu-[place] H DO Work Phone: 1(120) 615-311104-04-2022 15:00-588169 1Dvictor manuel Escamilla Defrance Work Phone: 1(712) [phone]-Duasghrzujcologf-[place] H DO Work Phone: Comment on above:4-53_JPlyr43-03-2022 15:00-370572 1 Lobo Escamilla Defrance Work Phone: 1(393) [phone]-Cdmvewoefwbricxf-[place] H DO Work Phone: Comment on above:JHBBfun7-12_RObwj05-11-2021 13:03-0400Body cjbako489 cmDavid T Defrance Work Phone: 1(318) [phone]-Plkgotilpf-[place] Work Phone: 1(272) 492-604408-09-2021 13:03-0400Body mass index (BMI) [Ratio] 36.47 kg/m9Hmqjh T Defrance Work Phone: 1(234) [phone]-Wnuourqqhv-[place] Work Phone: 1(392) 728-459608-09-2021 13:03-0400Body surface area Derived from formula2.15 j0Hnfvd T Defrance Work Phone: 1(798) [phone]-Uwoiinjldm-[place] Work Phone: 1(786) 129-499008-09-2021 13:03-0400Body zsckof096.4 kgDavid T Defrance Work Phone: 1(455) [phone]-Lsenwfeknb-[place] Work Phone: 1(245) 690-392908-09-2021 13:03087140 1Dvictor manuel Paul Work Phone: mg066-2389AR-Aoqqubdann-[place] Work Phone: Comment on above:3-74_CGgte61-91-2021 13:673845 1 Lobo Paul Work Phone: mg064-9163MZ-Sgbjcgocjf-[place] Work Phone: Comment on above:7-45_XImjzOAIWezj86-29-2020 21:29-0500Body ivczwhnmbnk39.81 [degF]Lobo Paul MD Work Phone: [facility] Work Phone: 1(680) 820-835001-20-2020 21:29-0500Diastolic blood asdduexw84 mm[Hg] Lobo Paul MD Work Phone: [facility] Work Phone: 1(793) [phone] 21:29-0500Heart eecx940 /Quintin Paul MD [facility] Phone: [facility] Work Phone: 1(430) [phone] 21:29-0500Respiratory rate16 /Quintin Paul MD Work Phone: [facility] Work Phone: 1(256) 681-685601-20-2020 21:29-2960TqZ0% (BldA) [Mass fraction]99 % Lobo Paul MD Work Phone: [facility] Work Phone: 1(414) 179-767301-20-2020 21:29-0500Systolic blood yotkesuz270 mm[Hg] Lobo Paul MD Work Phone: [facility] Work Phone: Encounters Encounter DateEncounter TypeCare ProviderFacilityStart: 02-24-2025 End: 57-77-4706Wrvons flowsheetNatalie Say Eisenberg RIM FIRE CHARGER OPERATOR-NIGHT COORDINATOR Work Phone: [facility]ermatologyStart: 02-24-2025 End: 05-74-1203Guyfqe flowsheetNatalie A Felter RIM FIRE CHARGER OPERATOR-NIGHT COORDINATOR Work Phone: [facility] [place] DermatologyStart: 02-24-2025 End: 25-44-3806zwrxbdbumjPYBMFVO A FELTERNot AvailableStart: 02-24-2025 End: 94-25-2010Ehgvlu outpatient visit 15 minutesNatalie A Felter RIM FIRE CHARGER OPERATOR-NIGHT COORDINATOR Work Phone: [facility] [place] DermatologyComment on above:Acne vulgarisStart: 09-09-2024 End: 18-86-1025Vlnbxz outpatient visit 15 minutesNatalie A Felter RIM FIRE CHARGER OPERATOR-NIGHT COORDINATOR Work Phone: [facility] DERMComment on above:Acne vulgarisStart: 09-09-2024 End: 76-11-2918laxqufcnmqHFZXCVR A FELTERNot AvailableStart: 09-09-2024 End: 91-19-4332Sgbjhd flowsheetNatalie A Felter RIM FIRE CHARGER OPERATOR-NIGHT COORDINATOR Work Phone: [facility] DERMStart: 09-09-2024 End: 52-34-0456Wkmiom flowsheetNatalie A Felter RIM FIRE CHARGER OPERATOR-NIGHT COORDINATOR Work Phone: [facility] DERMStart: 08-12-2024 End: 56-69-7242ngspvrgqhtRjwvuwo Vytautas Giedraitis MDFacility:PM [facility]ito Start: 03-01-2024 End: 59-75-7234Ykqbhv outpatient visit [facility] Fab[facility]io RIM FIRE CHARGER OPERATOR-NIGHT COORDINATOR Work Phone: [facility] HospitalComment on above:Constipation, unspecified constipation type (Primary Dx); Gastroesophageal reflux disease without esophagitisStart: 03-01-2024 End: 06-58-2598wjzqdomblxSXURWQAspirus [facility]tonagon [facility] AmbulatoryStart: 02-13-2024 End: 91-22-6491Wjloza outpatient visit 15 minutesNatalie A Felter RIM FIRE CHARGER OPERATOR-NIGHT COORDINATOR Work Phone: [facility] DERMComment on above:Acne vulgaris (Primary Dx)Start: 02-13-2024 End: 61-86-4900Kmczlb flowsheetNatalie A Felter RIM FIRE CHARGER OPERATOR-NIGHT COORDINATOR Work Phone: noms [facility] DERMStart: 02-13-2024 End: 57-16-2347Gddfpj flowsheetNatalie A Felter RIM FIRE CHARGER OPERATOR-NIGHT COORDINATOR Work Phone: noms [facility] DERMStart: 08-21-2023 End: 40-42-7660Bpcwms outpatient visit 15 minutesShmarycarmen Juan Jose Underwood RIM FIRE CHARGER OPERATOR-NIGHT COORDINATOR Work Phone: [facility] HospitalComment on above:Gastroesophageal reflux disease without esophagitis; Constipation, unspecified constipation typeStart: 08-21-2023 End: 05-35-3825dhywhohnxuERNEZEAspirus [facility] AmbulatoryStart: 13-07-1097hpxxokxexpWhlbayJxnqj: 08-31-2022 End: 82-67-8186gdkctdanqtKGWBQ SHAMMOFacility:V1Olmzp: 78-79-8490Pnclrv outpatient visit 15 minutesDavid T Defrance Work Phone: [phone]-Vqnbtinmkdzxdyae-[place] H DO Work Phone: Start: 22-56-9819qtgpcfbomzWaJoe Linares Defrance Facility:[id number]: 03-23-2022 End: 90-01-0007wvawdsywgfHLJGO PARKERFacility:T5Betqc: 43-10-8693Xyqrau outpatient visit 15 minutesDavid T Defrance Work Phone: [phone]-Wagahokccy-[place] H DO Work Phone: Start: 04-96-8696htndahrhtqFq. Kamila Underwood Facility:[id number]: 12-22-2021 End: 31-65-0727dnwjqojqthKIEGGJ PARTNERS COMMUNITYFacility:A4Jzzqq: 40-11-4978Ue RenewalDavid T Defrance Work Phone: [phone]-Sdljdtjeak-Gastro Admin [facility] 593 Work Phone: Start: 07-01-5352Zredvn outpatient visit 15 minutes Lobo Escamilla Defrance Work Phone: GM-Btggghdyklttpcun-[place] H DO Work Phone: Start: 14-37-3613Lxwbmx outpatient visit 15 minutes Lobo Paul Work Phone: 1([phone]-SiqspnbdgnWaldo Hospital Work Phone: Start: 05-27-2019 End: 69-26-9491Cjvnbbius department patient visitDAVIAddie PAULHolzer Health Systemtart: 05-27-2019 End: 78-77-3689Pejlcuciu department patient visitDaviaddie Paul MD Work Phone: [facility] EDComment on above:Intercostal muscle strain, initial encounter (Primary Dx)Start: 06-19-2017 End: 75-01-0109GsjuwxgudoVMIZQBH PHYSICIANFacility:[facility] Procedures DateProcedureProcedure DetailPerforming ClinicianNasal cauteryDaviaddie Paul Work Phone: Plan of Treatment DateCare ActivityDetailAuthorStart: 85-29-8627CIH patients and/or patients aged 60+ years (1 - 1-dose 60+ series)RSV patients and/or patients aged 60+ years (1 - 1-dose 60+ series)[facility] Start: 94-70-3511Clxojt Vaccines (1 of 2)Zoster Vaccines (1 of 2)[facility] CenterStart: 02-26-2026 End: 80-14-8831Sofiosj encounter yosbkjvkl98/22/2026 1:00 PM EDT Office Visit [facility] [address] [place] [address] Paulina Eisenberg, RIM FIRE CHARGER OPERATOR-NIGHT COORDINATOR [address] [place] [address] [facility]atologyStart: 03-25-2025 End: 67-24-5885Zqtnycq encounter hsiujeubx29/18/2025 2:40 PM EST Office Visit [facility] [address] [place] [address] Paulina Eisenberg, RIM FIRE CHARGER OPERATOR-NIGHT COORDINATOR [address] [place] [address] [facility]OMK[facility] DavisNew [place] DermatologyStart: 01-13-2025 End: 36-94-1715Vyosgtp encounter irgpcmqug59/08/2025 1:25 PM EDT [facility] [address] [place] [address] Paulina Eisenberg RIM FIRE CHARGER OPERATOR-NIGHT COORDINATOR [address] [place] [address] [facility] DERMStart: 87-84-9305Yzmkjbaiz vaccinationInfluenza Vaccine (Season Ended)[facility]OM HealthcareStart: 09-09-2024 End: 67-76-9894Djtewkp encounter yttczuqpp91/05/2025 2:55 PM EDT Office Visit [facility] [address] [place] [address] Paulina Eisenberg RIM FIRE CHARGER OPERATOR-NIGHT COORDINATOR [address] [place] [address] ArrivedNOMS [facility] DERMComment on above: ArrivedStart: 08-30-2024 End: 74-77-0904Hkyhvhh encounter jarajoiyo32/25/2025 10:00 AM EDT Office Visit [address] [place] [address] Kamila Underwood, RIM FIRE CHARGER OPERATOR-NIGHT COORDINATOR [address] [place] [address] [facility] HospitalStart: 08-13-2024 End: 14-04-0300Sfetjaw encounter qhpbutkkt24/08/2025 2:05 PM EDT Office Visit [facility] [address] [place] [address] Paulina Eisenberg RIM FIRE CHARGER OPERATOR-NIGHT COORDINATOR [address] [place] [address] [facility] DERMStart: 03-01-2024 End: 19-45-7206Jmzlrad encounter gxddmtsub27/25/2024 11:00 AM EDT Office Visit [address] [facility] [place] [address] Kamila Underwood, RIM FIRE CHARGER OPERATOR-NIGHT COORDINATOR [address] [place] [address] [facility]art: 02-13-2024 End: 35-43-9268Uysgcqj encounter uptmmyrsm77/08/2024 2:30 PM EDT Office Visit [facility] [address] [place] [address] FainaPaulina, RIM FIRE CHARGER OPERATOR-NIGHT COORDINATOR [address] [place] [address] ArrivedNOMENLO PARK [facility] DERMComment on above: ArrivedStart: 11-35-2008LKKDW-19 Vaccine ( season)COVID-19 Vaccine ( season)[facility]: 87-81-2356Nmjeubemu vaccinationInfluenza Vaccine (#1)[facility]OM HealthcareStart: 18-19-9552Aqglqeyna C screeningHepatitis C ScreeningUnKettering Memorial Hospital: 02-20-2023 FUV, Provider: Kamila Underwood, Status: Pen, Time: 2:30 PMFUV, Provider: Kamila Underwood, Status: Pen, Time: 2:30 PFMK-Gscgjwghhiiuodpx-Avbpdcoq H DO Work Phone: Start: 07-83-5862JHEJF-19 Vaccine ( season) COVID-19 Vaccine ( season)[facility]: 41-05-2542BFT, Provider: Kamila Underwood, Status: Pen, Time: 2:30 PMFUV, Provider: Kamila Underwood, Status: Pen, Time: 2:30 RZZK-Tyisfpclqh-Dspeetmk H DO Work Phone: Start: 28-28-8031EAO, Provider: Kamila Underwood, Status: Pen, Time: 1:00 PMFUV, Provider: Kamila Underwood, Status: Pen, Time: 1:00 PM YN-Boilounbljlqqyrp-Ykwwzyns H DO Work Phone: Start: 44-07-2756DZW, Provider: Kamila Underwood, Status: Pen, Time: 2:00 PMFUV, Provider: Kamila Underwood, Status: Pen, Time: 2:00 PM TU-Zxrtrtgcgq-Nsvdbhnwh Work Phone: Start: 75-35-7938Fxcpzovqu vaccinationFlu vaccine (#1) [facility] Phone: start: 61-52-3254GOjE/Tdap/Td Vaccines (6 - Tdap) DTaP/Tdap/Td Vaccines (6 - Tdap)[facility]: 77-45-5175AJbF/Tdap/Td vaccine (6 - Tdap)DTaP/Tdap/Td vaccine (6 - Tdap)[facility] Phone: start: 53-47-6493JLC vaccine (1 - Male 2-dose series) HPV vaccine (1 - Male 2-dose series)[facility] Phone: start: 59-64-3864Bllbpersvopqi (ACWY) Vaccine (1 - 2- dose series)Meningococcal (ACWY) Vaccine (1 - 2-dose series)[facility] Phone: start: 88-96-2753Qwwmoezvsa Depression Screening Adolescent Depression ScreeningAkron Children's Hospital: 77-18-8465Kbjxbplbvstb Vaccine: Pediatrics (0 to 5 Years) and At-Risk Patients (6 to 64 Years) (1 of 2 - PCV)Pneumococcal Vaccine: Pediatrics (0 to 5 Years) and At-Risk Patients (6 to 64 Years) (1 of 2 - PCV)[facility]: 22-78-8743Udkzjgclh Vaccine (1 of 2 - 2-dose childhood series) Varicella Vaccine (1 of 2 - 2-dose childhood series)[facility] Phone: start: 19-79-7385Rmolilu Screening (#1)Hearing Screening (#1)[facility]: 04-77-5376Bhxc Child Visit (WCV) - [facility] (WCV) - [facility]Un[facility] [place] Start: 80-28-7775Liiac vaccine 0-18 (1 of 3 - 4-dose series)Polio vaccine 0-18 (1 of 3 - 4-dose series)[facility] Phone: start: 50-72-6484Nqoceyu Screening (#1)Hearing Screening (#1)[facility]: 24-25-0494TOL screeningHIV ScreeningAkron Children's Hospital: 09-28-9800Hillj panelLipid PanelUnKettering Memorial Hospital: 08-04-2006Medicare Annual Wellness VisitMedicare Annual Wellness Visit (AWV)[facility] Immunizations Immunization DateImmunizationNotesCare FcdpbzvaHkludujb73-84-1846gnkazvged virus vaccine, unspecified formulationCyndialijuan jose Eisenberg APRN-NIGHT COORDINATOR Work Phone: [facility] NorthWnbjoahetl26-37-1262jxqtmzlvi, injectable, quadrivalent, preservative freeDavid T Defrance Work Phone: mg656-1860XV-Osrsnywslpjdijeu-[facility] DO Work Phone: 1(217) [phone]ufufedfclecd oligosaccharide (groups A, C, Y and W-135) diphtheria toxoid conjugate vaccine (MCV4O)Lobo T Defrance Work Phone: mg466-5725LM-Sqeclhtluirbxwxa-[facility] DO Work Phone: 1(159) [phone]sjvug, injectable, quadrivalent, preservative freeDavid T Defrance Work Phone: mg126-3350IN-Ocxeavkmnqvmnvlu-[facility] DO Work Phone: 1(579) [phone]-FrgZMpwx COVID-19 Vacc 30 MCG/0.3ML Intramuscular SuspensionDavid T Defrance Work Phone: mg303-6068JY-DlouxnuntntfrhoqSt. [facility]'S [facility] DO Work Phone: 1(219) 680-307009893035-74-9234Wsdtjn-GyvQWlbp COVID-19 Vacc 30 MCG/0.3ML Intramuscular SuspensionDavid T Defrance Work Phone: mg157-2263HF-Jfivezwhnyoenmsw-[place] H DO Work Phone: 1(383) [phone]hwdidsbe, injectable, quadrivalent, preservative freeDavid T Defrance Work Phone: mg786-6945GY-XmvjrhxmrsWaldo Hospital Work Phone: 1(313) 118-408910783644-54-7432epkhqdkfr, injectable, quadrivalent, preservative freeDavid T Defrance Work Phone: mg187-0483BI-Grvyegrgan-[place] Work Phone: 1(401) 680-813703037293-61-9870Zzswp Papillomavirus 9-valent vaccineDavid T Defrance Work Phone: mg067-6432DP-Avliwkacah-[place] Work Phone: 1(966) [phone]flmxq, injectable, quadrivalent, preservative freeDavid T Defrance Work Phone: mg062-4792MJ-Ozshlqfpfj-[facility] Work Phone: [phone] 530-956409174198-18-0335Jpitp Papillomavirus 9-valent vaccineDavid T Defrance Work Phone: mg885-5764JN-Gnesksryqh-[facility] Work Phone: [phone]wvyrteipih, MCV4, unspecified conjugate formulation(groups A, C, Y and W-135)Lobo T Defrance Work Phone: mg338-9947KC-[facility]hnhgorwWal[facility] Work Phone: [phone]tclk toxoid, reduced diphtheria toxoid, and acellular pertussis vaccine, adsorbedDavid T Defrance Work Phone: mg908-3833OB-Qhxjtcaylr-[facility]La [employer] Work Phone: [phone](adult) unspecified formulationDavid T Defrance Work Phone: mg322-0954OK-AtolffazutYadkin [facility] HospitalLa [employer] [employer] Work Phone: [phone]fkdtf, seasonal, injectable, preservative freeDavid T Defrance Work Phone: mg685-6586CU-Murhoshirx-[facility]La [employer] [employer] Work Phone: [phone]gingb virus vaccine, live, attenuated, for intranasal useDavid T Defrance Work Phone: mg124-9163XU-NgegksixagYadkin [facility] HospitalLa [employer] [employer] Work Phone: [phone]ssr virus vaccine, whole virusDavid T Defrance Work Phone: mg045-8557GV-WdhxoelujxYadkin [facility] HospitalLa [employer] Work Phone: [phone]ggyxjz virus vaccine, whole virusDavid T Defrance Work Phone: mg004-4865KP-EbrgjglzilWaldo Hospital Work Phone: [phone]dkubq A vaccine, pediatric/adolescent dosage, 2 dose scheduleDavid T Defrance Work Phone: mg456-3535OP-PpoxqnfokrYadkin [facility] HospitalLa [employer] Work Phone: [phone]prcjan virus vaccine, whole virusDavid T Defrance Work Phone: mg611-5446TT-Prdmsuoxcx-[facility] Work Phone: [phone]uxrgne, tetanus toxoids and acellular pertussis vaccine, and poliovirus vaccine, inactivatedDavid T Defrance Work Phone: [phone]-[facility]uddvibrnqWaldo [facility] Work Phone: [phone]ifdux A vaccine, pediatric/adolescent dosage, 2 dose scheduleDavid T Defrance Work Phone: [phone]-RnjbdnplrkYadkin Valley Community HospitalLa [facility] [employer] Work Phone: [phone]jbw, mumps, rubella, and varicella virus vaccineDavid T Defrance Work Phone: [phone]-TiqgartwvuYadkin Valley Community HospitalLa [employer] [employer] Work Phone: [phone] cxszvuvmk-N9E2-15, preservative-free, injectableDavid T Defrance Work Phone: XS-ZxhvlhejlaYadkin Valley Community Hospitallands Work Phone: [phone]mwpyqnbh virus vaccine, whole virusDavid T Defrance Work Phone: ZR-EqkarakpgcYadkin Valley Community Hospitallands Work Phone: [phone]chpxfofb virus vaccine, whole virusDavid T Defrance Work Phone: FL-Nvgidmoyye-[facility] Work Phone: [phone]dikwcnx, tetanus toxoids and acellular pertussis vaccineDavid T Defrance Work Phone: BO-ItqoenymruWaldo Hospital Work Phone: [phone]wkkzxrxfomh conjugate vaccine, 7 valent Lobo T Defrance Work Phone: LB-OekyisqiecWaldo Hospital Work Phone: [phone]tzhyrinl influenzae type b vaccine, PRP-T conjugateDavid T Defrance Work Phone: LD-EahgacxnyoWaldo Hospital Work Phone: [phone]vnlapv, mumps, rubella, and varicella virus vaccineDavid T Defrance Work Phone: VK-XqggoolwfvYadkin Valley Community Hospitallands Work Phone: [phone]ktqfzdqglcs conjugate vaccine, 7 valent Lobo T Defrance Work Phone: LT-FxcercxehgYadkin Valley Community Hospitallands Work Phone: [phone]-thcsssqri B and poliovirus vaccineDavid T Defrance Work Phone: JR-Jobjfwomxg-[facility] Work Phone: [phone]sgiqwapqbp influenzae type b vaccine, PRP-T conjugateDavid T Defrance Work Phone: ZY-Bntftfahlc-[facility] Work Phone: [phone]jekbbwqlepw conjugate vaccine, 7 valent Lobo T Defrance Work Phone: MZ-Cdrofwwtke-[facility] Work Phone: [phone]WuG-nybkrfbdq B and poliovirus vaccineDavid T Defrance Work Phone: LK-Uvjmwsayzu-[facility] Work Phone: [phone]xztmqxjt influenzae type b vaccine, PRP-T conjugateDavid T Defrance Work Phone: PL-Jtichuyhgr-[facility] Work Phone: [phone]OzM-loqcaecyw B and poliovirus vaccineDavid T Defrance Work Phone: FU-Zkpugakjaz-[facility] Work Phone: [phone]miloewmtki influenzae type b vaccine, PRP-T conjugateDavid T Defrance Work Phone: OV-Glxgwifsaf-[facility] Work Phone: [phone]gefkkcmhdjz conjugate vaccine, 7 valent Lobo T Defrance Work Phone: EI-Hvwufgheoc-[facility] Work Phone: [phone]rfdlrzx B vaccine, pediatric or pediatric/adolescent dosageDavid T Defrance Work Phone: BD-Cezxhnmoom-[facility] Work Phone: Payers DatePayer CategoryPayerPolicy [id number] Health InsuranceFL[facility]ICA[facility] [id number] [id number] 2025Medicaid (Managed Care)[facility] MEDICAID [id number] [id number] 2024Medicare [id number] [id number] COMMUNITY HEALTH PLAN [facility] PL[facility] xxxxxxxxxxxx 2017-Present [phone] [address] [place] [address] xxxxxxxxxxxx [id number] 2..1.316376.3.57[id number] 2..1.380768.3.57[id number] 2..1.382477.3.57[id number] 2..1.340571.3.57[id number] 2.0.1.749594.3.57[id number] 2..0.1.778765.3.57[id number] 2.16.840.1.971827.3.57[id number] 2.16840.1.544044.3.57[id number] 2.840.1.577542.3.57[id number] 2.0.1.119677.3.57[id number] 2.16.840.1.257389.3.57[id number] Social History DateTypeDetailFacilityStart: 07-31-2023 End: 13-16-7053Am school problemsNo school eughddzyPR-Cdijyjlccj-Owuihwpvh Work Phone: Start: 05-27-2019 End: 97-89-8872Uswoxqg smoking status NHISNever smokerNOIA HealthcareStart: 24-32-9359Ebf Assigned At BirthNot on [facility] Work Phone: start: 01-17-2023 End: 64-15-2814Nhphbao smoking status NHISTobacco smoking consumption unknown [facility] Work Phone: Start: 07-31-2023 End: 30-23-1464Ymomdf identityNot on [facility] Work Phone: Start: 08-11-2023 End: 34-75-2937Pemvjoav to SARS-CoV-2 (event)Not sureUniversity Hospitals Elyria Medical CenterStart: 07-31-2023 End: 82-97-9923Gmsljlujw beverage intakeLifetime non-drinker (finding)[facility] HealthcareStart: 72-16-4322Iidectg Commentcaffeine: [facility] CenterStart: 37-39-2394FfxHarvVDHF Healthcare Clinical Notes 08-09-2021 to 02-24-2025 Note Date & AtrdZuscHnismtnw81-89-0025 History of Present illness Narrative* LIZA Burks - 02/24/2025 1:40 PM EDT [...] year acne follow up documented in this [facility]05-05-2025 History of Present illness Narrative* LIZA Burks - 09/09/2024 2:55 PM EDT Images from the original note were not [...] Visit: 4 months acne documented in this encounterCox NorthEbwupgzybd92-81-5872 History of Present illness Narrative* LIZA Burks - 02/13/2024 2:30 PM EDT Images from the original note were not [...] months, follow up acne documented in this encounterCox NorthVlgndcsfsd59-92-1053 History of Present illness Narrative* LIZA Carranza - 08/21/2023 2:00 PM EDT Pediatric Gastroenterology Follow Up Office Visit Shaila Toure his caregiver were seen in the [facility] Pediatric Gastroenterology, Hepatology & Nutrition Clinic [...] Problems Diagnosis Date Noted Asthma, mild intermittent ([facility]) 01/17/2023 Gastroesophageal reflux 01/17/2023 Constipation 02/20/2023 Attention [...] by mouth. ergocalciferol (Vitamin D-2) 1.25 MG (87000 UT) capsule Take 1 capsule (1,250 mcg) [...] kg/m 98 %ile (Z= 2.11) based on CDC(Boys, 2-20 Years) BMI-for-age based on BMI available [...] as prescribed. Reinforced importance of taking medications andrecommended adding reminder to phone. Patient Instructions 1. Continue Pepcid daily 2. Continue Colace daily 3. Put reminder on phone for meds 4. Follow up in 6 months LIZA Carranza Division of Pediatric Gastroenterology, Hepatology and Nutrition documented in this encounterUniversity [facility] Work Phone: [phone]) 579-636804-15-2024 Instructions* Patient Instructions* LIZA Carranza - 08/21/2023 2:00 PM EDT 1. Continue Pepcid daily 2. Continue Colace daily 3. Put reminder on phone for meds 4. Follow up in 6 months documented in this encounterUniversity [facility]als [facility] Work Phone: 1(979) 538-278004-04-2022 History of Present illness NarrativeSHAILA is a [...] choking when he eats. Taking Pepcid daily. BF-Npexgiwetmhznjii-Pliryrdp H DO Work Phone: Evaluation note* Diagnosis Intercostal muscle strain, initial encounter- Primary documented in this encounter [employer] Work Phone: evaluation note* Diagnosis Gastroesophageal reflux disease without esophagitis Esophageal reflux Constipation, unspecified constipation type documented in this encounter [facility] Work Phone: Evaluation note* Diagnosis Acne vulgaris- Primary Other acne [facility]* Diagnosis Constipation, unspecified constipation type- Primary Gastroesophageal reflux disease without esophagitis Esophageal reflux documented in this encounter [facility] Work Phone: Evaluation note* Diagnosis Acne vulgaris Other acne documented in this encounter [facility] HealthcareEvaluation note* Diagnosis Acne vulgaris Other acne documented [...] avoiding some starches and carbs. Taking Pepcid daily.FW-Oktsxfdokl-Lqktayapl Work Phone: History of Present illness Aileen is a 15 year old here for follow up of his reflux. Mom is present at today's visit and served as the historian. SHAILA also provided history. He is doing well today. No issues stooling sincestarting Colace. No abdominal pain. No reflux or heartburn symptoms. Denies coughing or choking when he eats. Taking Pepcid and Colace daily.DK-Hniejwxonu-Okhbtyru H DO Work Phone: History of Present [...] eats. Taking Pepcid and Colace as needed. PN-Clyclifufwjfnhpk-Ugxvgwcg H DO Work Phone: History of Present illness Narrative* Kamila Underwood APRN-ERIKA - 03/01/2024 11:00 AM EDT Pediatric Gastroenterology Follow Up Office Visit Shaila Smithaddie his caregiver were seen in the [facility] Pediatric Gastroenterology, Hepatology & Nutrition Clinic [...] Problems Diagnosis Date Noted Asthma, mild intermittent ([facility]) 01/17/2023 Gastroesophageal reflux 01/17/2023 Constipation 02/20/2023 Attention [...] by mouth. ergocalciferol (Vitamin D-2) 1.25 MG (00031 UT) capsule Take 1 capsule (1,250 mcg) [...] Gastroenterology, Hepatology and Nutrition documented in this encounterUniversity [facility]als [facility] Work Phone: Hospital Discharge instructions* Attachments The following attachments cannot be sent through Care Everywhere. * Muscle Strain: Pediatric (Bulgarian) [facility] Work Phone: Instructions* Patient Instructions* LIZA Carranza - 03/01/2024 11:00 AM EDT 1. Continue Pepcid daily 2. Continue Colace daily as needed 3. Follow up in 6 months documented in this [facility] Work Phone: Summary Purpose Family History No Family History Records FoundUnknown Family Member Name Dates Details Ulcer: Mother, Father, Broth er Status:ActiveFamily history of gastroesophageal reflux disease: Mother, Father, Maternal Grandmother, Paternal Grandmother, Maternal Grandfather, Paternal Grandfather, Sister, Brother(V18.59, Z83.79) Status:ActiveFamily history of colonic diverticulitis: Mother(V18.59, Z83.79) Status:ActiveGallstones: Mother, Father, Maternal Grandmother, Paternal Grandmother, Maternal Grandfather, Paternal Grandfather Status:ActiveFamily history of kidney stones: Mother, Father, Maternal Grandmother, Paternal Grandmother, Maternal Grandfather, Paternal Grandfather (V18.69, Z84.1) Status:ActiveEnvironmental allergies: Sister, Brother Status:ActiveFamily history of asthma: Mother, Sister, Brother(V17.5, Z82.5) Status:ActiveFamily history of eczema: Brother(V19.4, Z84.0) Status:ActiveCow's milk intolerance: Brother Status:ActiveFamily history of migraine headaches: Mother, Sister, Brother (V17.2, Z82.0) Status:Active Unknown Family Member Name Dates Details Ulcer: Mother, Father, Broth er Status:ActiveFamily history of gastroesophageal reflux disease: Mother, Father, Maternal Grandmother, Paternal Grandmother, Maternal Grandfather, Paternal Grandfather, Sister, Brother(V18.59, Z83.79) Status:ActiveFamily history of colonic diverticulitis: Mother(V18.59, Z83.79) Status:ActiveGallstones: Mother, Father, Maternal Grandmother, Paternal Grandmother, Maternal Grandfather, Paternal Grandfather Status:ActiveFamily history of kidney stones: Mother, Father, Maternal Grandmother, Paternal Grandmother, Maternal Grandfather, Paternal Grandfather (V18.69, Z84.1) Status:ActiveEnvironmental allergies: Sister, Brother Status:ActiveFamily history of asthma: Mother, Sister, Brother(V17.5, Z82.5) Status:ActiveFamily history of eczema: Brother(V19.4, Z84.0) Status:ActiveCow's milk intolerance: Brother Status:ActiveFamily history of migraine headaches: Mother, Sister, Brother (V17.2, Z82.0) Status:Active Unknown Family Member Name Dates Details Ulcer: Mother, Father, Broth er Status:ActiveFamily history of gastroesophageal reflux disease: Mother, Father, Maternal Grandmother, Paternal Grandmother, Maternal Grandfather, Paternal Grandfather, Sister, Brother(V18.59, Z83.79) Status:ActiveFamily history of colonic diverticulitis: Mother(V18.59, Z83.79) Status:ActiveGallstones: Mother, Father, Maternal Grandmother, Paternal Grandmother, Maternal Grandfather, Paternal Grandfather Status:ActiveFamily history of kidney stones: Mother, Father, Maternal Grandmother, Paternal Grandmother, Maternal Grandfather, Paternal Grandfather (V18.69, Z84.1) Status:ActiveEnvironmental allergies: Sister, Brother Status:ActiveFamily history of asthma: Mother, Sister, Brother(V17.5, Z82.5) Status:ActiveFamily history of eczema: Brother(V19.4, Z84.0) Status:ActiveCow's milk intolerance: Brother Status:ActiveFamily history of migraine headaches: Mother, Sister, Brother (V17.2, Z82.0) Status:Active Unknown Family Member Name Dates Details Ulcer: Mother, Father, Broth er Status:ActiveFamily history of gastroesophageal reflux disease: Mother, Father, Maternal Grandmother, Paternal Grandmother, Maternal Grandfather, Paternal Grandfather, Sister, Brother(V18.59, Z83.79) Status:ActiveFamily history of colonic diverticulitis: Mother(V18.59, Z83.79) Status:ActiveGallstones: Mother, Father, Maternal Grandmother, Paternal Grandmother, Maternal Grandfather, Paternal Grandfather Status:ActiveFamily history of kidney stones: Mother, Father, Maternal Grandmother, Paternal Grandmother, Maternal Grandfather, Paternal Grandfather (V18.69, Z84.1) Status:ActiveEnvironmental allergies: Sister, Brother Status:ActiveFamily history of asthma: Mother, Sister, Brother(V17.5, Z82.5) Status:ActiveFamily history of eczema: Brother(V19.4, Z84.0) Status:ActiveCow's milk intolerance: Brother Status:ActiveFamily history of migraine headaches: Mother, Sister, Brother (V17.2, Z82.0) Status:Active Unknown Family Member Name Dates Details Family history of asthma: Mo ther, Sister, Brother(V17.5, Z82.5) Status:ActiveEnvironmental allergies: Sister, Brother Status:ActiveFamily history of kidney stones: Mother, Father, Maternal Grandmother, Paternal Grandmother, Maternal Grandfather, Paternal Grandfather (V18.69, Z84.1) Status:ActiveGallstones: Mother, Father, Maternal Grandmother, Paternal Grandmother, Maternal Grandfather, Paternal Grandfather Status:ActiveFamily history of colonic diverticulitis: Mother(V18.59, Z83.79) Status:ActiveFamily history of gastroesophageal reflux disease: Mother, Father, Maternal Grandmother, Paternal Grandmother, Maternal Grandfather, Paternal Grandfather, Sister, Brother(V18.59, Z83.79) Status:ActiveUlcer: Mother, Father, Brother Status:ActiveFamily history of eczema: Brother(V19.4, Z84.0) Status:ActiveCow's milk intolerance: Brother Status:ActiveFamily history of migraine headaches: Mother, Sister, Brother (V17.2, Z82.0) Status:Active Advance Directives No Advanced Directives Records FoundDocuments on File TypeDate RecordedPatient RepresentativeExplanationAdvance Directives and Living WillPower of Electrical Timing Device Calibrator Chief Complaint * Accompanied by mother. * [...] section and content) DATE CREATED AUTHOR 10/30/2017 [facility] DATE CREATED AUTHOR AUTHOR'S ORGANIZ ATION 05/27/2019 [facility] DATE CREATED AUTHOR AUTHOR'S ORGANIZ ATION 04/05/2020 [facility] DATE CREATED AUTHOR AUTHOR'S ORGANIZ ATION 08/11/2022 [facility] DATE CREATED AUTHOR AUTHOR'S ORGANIZ ATION 08/11/2022 [facility] DATE CREATED AUTHOR AUTHOR'S ORGANIZ ATION 09/04/[address] [facility] DATE CREATED AUTHOR AUTHOR'S ORGANIZ ATION 11/16/2022 [facility] DATE CREATED AUTHOR AUTHOR'S ORGANIZ ATION 03/03/2024 [facility] DATE CREATED AUTHOR AUTHOR'S ORGANIZ ATION 08/16/2024 [facility] DATE CREATED AUTHOR AUTHOR'S ORGANIZ ATION 02/25/2025 [facility] EPIC Reason for Visit (unrecogniz ed section and content) ReasonCommentsBack Painstarted this morningReasonCommentsFollow-up6 month follow-up visitReasonCommentsSkin CheckReasonCommentsConstipationGERDFollow-up6 month fuvReasonCommentsAcne Care Teams (unrecognized sec tion and content) Team MemberRelationshipSpecialtyStart DateEnd Date Lobo Paul MD [address] [place] [address] PCP - General10/08/18Team MemberRelationshipSpecialtyStart DateEnd Date Deyanira Beaulieu MD [address] [place] [place] [address] [facility]03/07/23Te MemberRelationshipSpecialtyStart Date End Date Deyanira Beaulieu MD [address] [place] [address] [facility]03/07/23Te MemberRelationshipSpecialtyStart Date End Date Lobo Paul MD [address] [place] [address] [facility]10/08/18Te MemberRelationshipSpecialtyStart DateEnd Date Deyanira Beaulieu MD [address] [place] [place] [address] [facility]03/07/23Te MemberRelationshipSpecialtyStart Date End Date Deyanira Beaulieu MD [address] [facility] [address] [facility]03/07/23Te MemberRelationshipSpecialtyStart Date End Date Deyanira Beaulieu MD [address] [facility] [place] [address] [facility]03/07/23 FOR RECORDS PERTAINING TO PATIENTS WHO ARE [...] BE BASED ON THE PRIMARY CLINICAL RECORDS. [facility] [employer] [facility]. provides no warranty or guarantee of the accuracy or completeness of information in this document.
[2025-02-27 12:52] LABS: Hematocrit 46.4 % (42.0-54.0); Hemoglobin 15.4 g/dL (14.0-18.0); Immature Granulocytes Abs Auto 0.03 10^3/uL (0.00-0.03); Immature Granulocytes Pct Auto 0.5 % (0.0-0.5); Lymphocytes Absolute Auto 1.6 10^3/uL (1.2-3.8); Mean Corpuscular HGB Conc 33.2 g/dL (29.9-35.2); Mean Corpuscular Hemoglobin 29.3 pg (25.9-34.0); Mean Corpuscular Volume 88.2 fL (80.0-94.0); Platelet Count 225 10^3/uL (150-450); Red Blood Count 5.26 10^6/uL (4.70-6.10); White Blood Count 6.7 10^3/uL (4.0-11.0)
[2025-02-27 13:07] LABS: Anion Gap 13.4; Blood Urea Nitrogen 17.0 mg/dL (6.4-19.3); Calcium 9.0 mg/dL (8.5-10.1); Carbon Dioxide 29.5 mmol/L (21.0-32.0); Chloride 104 mmol/L (98-107); Estimated GFR (African America >60 (>=60 mL/min/1.73m^2); Estimated GFR (Non-African Ame >60 (>=60 mL/min/1.73m^2); Glucose 94 mg/dL (74-106); Potassium 3.9 mmol/L (3.5-5.1); Sodium 143 mmol/L (136-145)
[2025-02-27 13:59] LABS: Iron 65.0 ug/dL (65.0-175.0); Percent Iron Saturation 18.4 %; Total Iron Binding Capacity 353.0 ug/dL (250.0-450.0)
[2025-02-27 14:24] LABS: Ferritin 97.0 ng/mL (26.0-388.0)
[2025-02-28 04:07] LABS: Vitamin B12 432 pg/mL (232-1245)
== END 2025-02-27 12:14 | disposition home or self-care (01) ==
LOC: LAB 12:13
PROVIDERS: PCP Nurse Practitioner; Visit Provider Internal Medicine Hematology & Oncology
DX: E55.9 Vitamin D deficiency, unspecified (principal)
CPT/HCPCS: 36415; 80048; 82306; 82607; 82728; 83540; 83550; 85025